=== PATIENT | male | born 1990 | race American Indian/Alaskan Native ===

== ENCOUNTER 2020-11-16 09:33 | Emergency (ER) | payer BC ==
--- NOTE | 2020-11-16 10:29 | XRay Report ---
CHEST 2 VIEWS INDICATION / CLINICAL INFORMATION: chest pain. COMPARISON: None available. FINDINGS: SUPPORT DEVICES: None. HEART / MEDIASTINUM: No significant abnormality. LUNGS / PLEURA: No significant pulmonary or pleural abnormality. No pneumothorax. ADDITIONAL FINDINGS: No significant additional findings. IMPRESSION: 1. No acute findings. Signer Name: Jagjit Kramer DO Signed: 11/16/2020 10:24 AM Workstation Name: [id number]
[2020-11-16 10:59] LABS: Basophils % (Auto) 0.4 % (0.0-1.8); Hemoglobin 13.7 gm/dl (11.8-15.2); Lymphocytes # (Auto) 1.1 K/mm3 (1.2-5.4); Lymphocytes % (Auto) 25.4 % (13.4-35.0); Mean Corpuscular HGB Conc 33 % (32-34); Mean Corpuscular Volume 76 fl (84-94); Monocytes # (Auto) 0.5 K/mm3 (0.0-0.8); Monocytes % (Auto) 11.5 % (0.0-7.3); Platelet Count 119 K/mm3 (140-440); Red Blood Count 5.56 M/mm3 (3.65-5.03); Red Cell Distribution Width 13.9 % (13.2-15.2)
[2020-11-16 11:26] LABS: Alanine Aminotransferase 39 units/L (7-56); Albumin 4.2 g/dL (3.9-5); BUN/Creatinine Ratio 9; Blood Urea Nitrogen 13 mg/dL (9-20); Calcium 8.6 mg/dL (8.4-10.2); Hemolysis Index 7
[2020-11-16 11:53] LABS: Bilirubin,Urine NEG (Negative); Blood,Urine NEG (Negative); Color,Urine Amber (Yellow); Mucus,Urine 2+ /HPF; Urobilinogen,Urine < 2.0 mg/dL (<2.0)
[2020-11-16] MEDS ORDERED: ONDANSETRON 4 MG ODT TAB PO ONE (11:55)
--- NOTE | 2020-11-16 11:55 | Emergency Department Report ---
ED General Adult HPI - General Chief complaint: Pain General Stated complaint: CHEST PAIN, BREATHING, HEADACHE, DIARRHEA Time Seen by Provider: 11/16/20 10:02 Source: patient Mode of arrival: Ambulatory Limitations: No Limitations - History of Present Illness Initial comments: 29-year-old -[place] male patient presents with complaints of chest p ain, cough, abdominal pain, vomiting, and diarrhea x4 days. Patient denies any recent known sick contacts, loss of taste or smell, hematemesis/coffee-ground emesis, melena/hematochezia, or fever. He does report minimal blood streaks in his sputum. No shortness of breath per patient. He describes the pain as a tightness and denies any past medical history. Pain occurs more with coughing. -: Sudden Severity scale (0 -10): 6 - Related Data Previous Rx's Medication Instructions Recorded Last Taken Type Acetaminophen [Tylenol] 975 mg PO TID PRN #30 capsule 11/16/20 Unknown Rx Ondansetron [Zofran Odt] 4 mg PO Q8HR PRN #15 tab.rapdis 11/16/20 Unknown Rx Allergies Allergy/AdvReac Type Severity Reaction Status Date / Time No Known Allergies Allergy Unverified 11/16/20 09:46 ED Review of Systems ROS: Stated complaint: CHEST PAIN, BREATHING, HEADACHE, DIARRHEA Other details as noted in HPI Constitutional: malaise, weakness. denies: chills, diaphoresis, fever ENT: denies: throat pain Respiratory: cough. denies: shortness of breath Cardiovascular: chest pain Gastrointestinal: abdominal pain, nausea, vomiting, diarrhea. denies: constipation, hematemesis, melena, hematochezia Genitourinary: denies: urgency, dysuria, frequency, hematuria Skin: denies: rash, lesions, change in color Neurological: headache (Mild intermittent.) ED Past Medical Hx - Past Medical History Previous Medical History?: No - Surgical History Past Surgical History?: No - Social History Smoking Status: Never Smoker Substance Use Type: None - Medications Home Medications: Home Medications Medication Instructions Recorded Confirmed Last Taken Type Acetaminophen [Tylenol] 975 mg PO TID PRN #30 capsule 11/16/20 Unknown Rx Ondansetron [Zofran Odt] 4 mg PO Q8HR PRN #15 tab.rapdis 11/16/20 Unknown Rx ED Physical Exam - General Limitations: No Limitations General appearance: alert, in no apparent distress - Head Head exam: Present: atraumatic, normocephalic - Eye Eye exam: Present: normal appearance. Absent: scleral icterus - Neck Neck exam: Present: normal inspection, full ROM. Absent: lymphadenopathy - Respiratory Respiratory exam: Present: normal lung sounds bilaterally. Absent: respiratory distress - Cardiovascular Cardiovascular Exam: Present: regular rate, normal rhythm - GI/Abdominal GI/Abdominal exam: Present: soft, normal bowel sounds. Absent: distended, te nderness, guarding, rebound, rigid - Neurological Exam Neurological exam: Present: alert, oriented X3, normal gait - Psychiatric Psychiatric exam: Present: normal affect, normal mood - Skin Skin exam: Present: warm, dry, intact, normal color. Absent: rash, cyanosis, diaphoretic, erythema, pallor, ecchymosis ED Course Vital Signs 11/16/20 09:47 Temperature 99.6 F Pulse Rate 89 Respiratory 20 Rate Blood Pressure 140/77 O2 Sat by Pulse 96 Oximetry ED Medical Decision Making - Lab Data Result diagrams: 11/16/20 10:31 11/16/20 10:31 Lab Results 11/16/20 11/16/20 Range/Units 10:31 10:31 WBC 4.5 (4.5-11.0) K/mm3 RBC 5.56 H (3.65-5.03) M/mm3 Hgb 13.7 (11.8-15.2) gm/dl Hct 42.0 (35.5-45.6) % MCV 76 L (84-94) fl MCH 25 L (28-32) pg MCHC 33 (32-34) % RDW 13.9 (13.2-15.2) % Plt Count 119 L (140-440) K/mm3 Lymph % (Auto) 25.4 (13.4-35.0) % [place] % (Auto) 11.5 H (0.0-7.3) % Eos % (Auto) 0.0 (0.0-4.3) % Baso % (Auto) 0.4 (0.0-1.8) % Lymph # (Auto) 1.1 L (1.2-5.4) K/mm3 [place] # (Auto) 0.5 (0.0-0.8) K/mm3 Eos # (Auto) 0.0 (0.0-0.4) K/mm3 Baso # (Auto) 0.0 (0.0-0.1) K/mm3 Seg Neutrophils % 62.7 (40.0-70.0) % Seg Neutrophils # 2.8 (1.8-7.7) K/mm3 Sodium 135 L (137-145) mmol/L Potassium 4.0 (3.6-5.0) mmol/L Chloride 97.0 L (98-107) mmol/L Carbon Dioxide 30 (22-30) mmol/L Anion Gap 12 mmol/L BUN 13 (9-20) mg/dL Creatinine 1.5 H (0.8-1.3) mg/dL Estimated GFR 55 ml/min BUN/Creatinine Ratio 9 % Glucose 91 (75-100) mg/dL Calcium 8.6 (8.4-10.2) mg/dL Total Bilirubin 0.60 (0.1-1.2) mg/dL AST 44 H (5-40) units/L ALT 39 (7-56) units/L Alkaline Phosphatase 52 (35-129) units/L Troponin T < 0.010 (0.00-0.029) ng/mL Total Protein 7.4 (6.3-8.2) g/dL Albumin 4.2 (3.9-5) g/dL Albumin/Globulin Ratio 1.3 % - Radiology Data Radiology results: report reviewed CHEST 2 VIEWS INDICATION / CLINICAL INFORMATION: chest pain. COMPARISON: None available. FINDINGS: SUPPORT DEVICES: None. HEART / MEDIASTINUM: No significant abnormality. LUNGS / PLEURA: No significant pulmonary or pleural abnormality. No pneumothorax. ADDITIONAL FINDINGS: No significant additional findings. IMPRESSION: 1. No acute findings. - Medical Decision Making 29-year-old -[place] male patient presents with complaints of chest pain, cough, abdominal pain, vomiting, and diarrhea x4 days. Patient denies any recent known sick contacts, loss of taste or smell, hematemesis/coffee-ground emesis, melena/hematochezia, or fever. He does report minimal blood streaks in his sputum. No shortness of breath per patient. He describes the pain as a tightness and denies any past medical history. Pain occurs more with coughing. No significant abnormalities on CBC or CMP. Chest x-ray and EKG are normal. Suspect viral illness or COVID-19. Will treat symptomatically. Patient advised to get COVID-19 testing outpatient within the next 24 to 48 hours and self quarantine until his test results are back. Vitals are normal he is nontoxic- appearing. He is stable for discharge home. He is to follow-up with primary care. Strict return precautions discussed in detail patient verbalized unde rstanding Critical care attestation.: If time is entered above; I have spent that time in minutes in the direct care of this critically ill patient, excluding procedure time. ED Disposition Clinical Impression: Suspected COVID-19 virus infection Disposition: TO HOME OR SELFCARE Is pt being admited?: No Condition: Stable Instructions: Prevent the Spread of COVID-19 if You Are Sick - CDC, COVID-19 Additional Instructions: Please take [id number] vitamin C and zinc daily and drink plenty of water. Please self quarantine until you are tested for COVID-19 If you develop any shortness of breath difficulty breathing or chest pain or any new/worsening symptoms seek immediate emergency treatment Prescriptions: Acetaminophen [Tylenol] 975 mg PO TID PRN #30 capsule PRN Reason: pain/fever Ondansetron [Zofran Odt] 4 mg PO Q8HR PRN #15 tab.rapdis PRN Reason: Nausea Referrals: [facility] [Provider Group] - 3-5 Days
[2020-11-16 12:43] VITALS: BP 140/88
--- NOTE | 2020-11-17 09:41 | Electrocardiograph Report ---
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
== END 2020-11-16 12:43 | disposition home or self-care (01) ==
LOC: ED 09:33
DX: R07.89 Other chest pain (principal); Z20.822 Contact with and (suspected) exposure to COVID-19; R05 Cough; R19.7 Diarrhea, unspecified; Z79.899 Other long term (current) drug therapy
CPT/HCPCS: 36415; 71046; 80053; 81001; 84484; 85025; 93005; Q0162

== ENCOUNTER 2020-11-19 11:19 | Inpatient (IN) | payer BC ==
[2020-11-19] MEDS ORDERED: cefTRIAXone/NS 1 GM/50 ML 1 GM/50 ML BAG IV ONE (12:17)
[2020-11-19] MEDS ORDERED: dexAMETHasone 20 MG/5 ML VIAL IV ONE (12:17)
[2020-11-19] MEDS ORDERED: AZITHROMYCIN/NS 500 MG/250 ML 500 MG/250 ML BAG IV ONE (12:17)
--- NOTE | 2020-11-19 12:24 | XRay Report ---
CHEST 2 VIEWS INDICATION / CLINICAL INFORMATION: COVID positive w/sob and hypoxic. COMPARISON: 11/16/20. FINDINGS: SUPPORT DEVICES: None. HEART / MEDIASTINUM: The heart size and pulmonary vasculature are normal. LUNGS / PLEURA: There are mild patchy parenchymal opacities throughout both mid to lower lung zones. No pleural effusion or adenopathy. No pneumothorax. ADDITIONAL FINDINGS: No significant additional findings. IMPRESSION: Mild patchy parenchymal opacities throughout both mid to lower lung zones are new since t he prior study. Atypical causes of pneumonia, including viral pneumonia, should be considered. Signer Name: Joby Barraza MD Signed: 11/19/2020 12:19 PM Workstation Name: [id number]
[2020-11-19] MEDS ORDERED: fentaNYL 100 MCG/2 ML INJ IV ONE (12:33)
[2020-11-19] MEDS ORDERED: METOCLOPRAMIDE 10 MG/2 ML INJ IV ONE (12:33)
--- NOTE | 2020-11-19 12:37 | Emergency Department Report ---
HPI - General Chief Complaint: Dyspnea/Respdistress Time Seen by Provider: 11/19/20 12:16 - HPI HPI: Room 1 The patient is a 30-year-old male present with a chief complaint of shortness of breath and cough. The patient states for 1 week he has had a cough productive of clear sputum in addition to shortness of breath and fever. Patient complained of chest pain when he coughs. The patient went to urgent care facility today and tested positive for Covid. Patient was reportedly hypoxic to 87% on room air in triage. Patient states he did not receive any Covid vaccinations ED Past Medical Hx - Past Medical History Previous Medical History?: No - Surgical History Past Surgical History?: No - Family History Family history: no significant - Social History Smoking Status: Never Smoker Substance Use Type: None - Medications Home Medications: Home Medications Medication Instructions Recorded Confirmed Last Taken Type Acetaminophen [Tylenol] 975 mg PO TID PRN #30 capsule 11/16/20 Unknown Rx Ondansetron [Zofran Odt] 4 mg PO Q8HR PRN #15 tab.rapdis 11/16/20 Unknown Rx ED Review of Systems ROS: Stated complaint: TROUBLE BREATHING Other details as noted in HPI Constitutional: fever Eyes: denies: eye pain ENT: denies: throat pain Respiratory: cough, shortness of breath Cardiovascular: chest pain Endocrine: no symptoms reported Gastrointestinal: denies: abdominal pain Genitourinary: denies: dysuria Musculoskeletal: myalgia Neurological: headache Physical Exam - Physical Exam Vital Signs: Vital Signs 11/19/20 11:28 Temperature 99.6 F Pulse Rate 104 H Respiratory 20 Rate Blood Pressure 124/64 O2 Sat by Pulse 100 Oximetry Physical Exam: GENERAL: The patient is well-developed well-nourished male lying on stretcher not appearing to be in acute distress. [] HEENT: Normocephalic. Atraumatic. Extraocular motions are intact. Patient has moist mucous membranes. NECK: Supple. Trachea midline CHEST/LUNGS: Occasional rhonchi. There is no respiratory distress noted. HEART/CARDIOVASCULAR: Regular. There is no tachycardia. There is no gallop rub or murmur. ABDOMEN: Abdomen is soft, nontender. Patient has normal bowel sounds. There is no abdominal distention. SKIN: There is no rash. There is no edema. There is no diaphoresis. NEURO: The patient is awake, alert, and oriented. The patient is cooperative. The patient has no focal neurologic deficits. The patient has normal speech MUSCULOSKELETAL: There is no evidence of acute injury. ED Course Vital Signs 11/19/20 11:28 Temperature 99.6 F Pulse Rate 104 H Respiratory 20 Rate Blood Pressure 124/64 O2 Sat by Pulse 100 Oximetry ED Medical Decision Making - Lab Data Result diagrams: 11/19/20 12:15 11/19/20 12:15 Laboratory Tests 11/19/20 11/19/20 11/19/20 12:15 12:15 12:15 WBC 6.4 RBC 5.53 H Hgb 13.6 Hct 41.7 MCV 76 L MCH 25 L MCHC 33 RDW 14.3 Plt Count 83 L Lymph % (Auto) 15.9 [place] % (Auto) 7.9 H Eos % (Auto) 0.0 Baso % (Auto) 0.3 Lymph # (Auto) 1.0 L [place] # (Auto) 0.5 Eos # (Auto) 0.0 Baso # (Auto) 0.0 Seg Neutrophils % 75.9 H Seg Neutrophils # 4.8 D-Dimer 1284.11 H Sodium 130 L Potassium 4.4 Chloride 89.4 L Carbon Dioxide 32 H Anion Gap 13 BUN 14 Creatinine 1.5 H Estimated GFR > 60 BUN/Creatinine Ratio 9 Glucose 109 H Calcium 8.8 Total Bilirubin 0.90 AST 95 H ALT 72 H Alkaline Phosphatase 57 Lactate Dehydrogenase 999 H Troponin T C-Reactive Protein 3.40 H Total Protein 7.7 Albumin 4.1 Albumin/Globulin Ratio 1.1 11/19/20 12:15 WBC RBC Hgb Hct MCV MCH MCHC RDW Plt Count Lymph % (Auto) [place] % (Auto) Eos % (Auto) Baso % (Auto) Lymph # (Auto) [place] # (Auto) Eos # (Auto) Baso # (Auto) Seg Neutrophils % Seg Neutrophils # D-Dimer Sodium Potassium Chloride Carbon Dioxide Anion Gap BUN Creatinine Estimated GFR BUN/Creatinine Ratio Glucose Calcium Total Bilirubin AST ALT Alkaline Phosphatase Lactate Dehydrogenase Troponin T < 0.010 C-Reactive Protein Total Protein Albumin Albumin/Globulin Ratio - Radiology Data Radiology results: report reviewed (Chest x-ray), image reviewed (Chest x-ray) interpreted by me: Chest [id number]-chqkhw bilateral infiltrates consistent with Covid pneumonia. No pneumothorax [facility] [address] [place] [address] XRay Report Signed Patient: DG RUSSELL MR#: [id number] : 1990 Acct:[id number] Age/Sex: 30 / M ADM Date: 11/19/20 Loc: ED Attending Dr: Ordering Physician: HERSON CONLEY Date of Service: 11/19/20 Procedure(s): XR chest routine 2V Accession Number(s): [id number] cc: HERSON CONLEY Fluoro Time In Minutes: CHEST 2 VIEWS INDICATION / CLINICAL INFORMATION: COVID positive w/sob and hypoxic. COMPARISON: 11/16/20. FINDINGS: SUPPORT DEVICES: None. HEART / MEDIASTINUM: The heart size and pulmonary vasculature are normal. LUNGS / PLEURA: There are mild patchy parenchymal opacities throughout both mid to lower lung zones. No pleural effusion or adenopathy. No pneumothorax. ADDITIONAL FINDINGS: No significant additional findings. IMPRESSION: Mild patchy parenchymal opacities throughout both mid to lower lung zones are new since the prior study. Atypical causes of pneumonia, including viral pneumonia, should be considered. Signer Name: Joby Barraza MD Signed: 11/19/2020 12:19 PM Workstation Name: [id number] Transcribed By: RT Dictated By: Joby Barraza MD Electronically Authenticated By: Joby Barraza MD Signed Date/Time: 11/19/20 121 DD/ TD/TT: Print Cancel - Differential Diagnosis COVID-19 Critical care attestation.: If time is entered above; I have spent that time in minutes in the direct care of this critically ill patient, excluding procedure time. ED Disposition Clinical Impression: Pneumonia due to COVID-19 virus, Hypoxia Disposition: OP ADMIT IP TO THIS HOSP Is pt being admited?: Yes Does the pt Need Aspirin: No Condition: Serious Instructions: Bacterial Pneumonia (ED) Time of Disposition: 13:52 (Hospitalist notified (Dr. Lawson))
[2020-11-19 12:52] LABS: Alanine Aminotransferase 72 units/L (7-56); Albumin 4.1 g/dL (3.9-5); BUN/Creatinine Ratio 9; Blood Urea Nitrogen 14 mg/dL (9-20); Calcium 8.8 mg/dL (8.4-10.2); Hemolysis Index 30
[2020-11-19 13:35] LABS: Basophils % (Auto) 0.3 % (0.0-1.8); Hematocrit 41.7 % (35.5-45.6); Hemoglobin 13.6 gm/dl (11.8-15.2); Lymphocytes % (Auto) 15.9 % (13.4-35.0); Mean Corpuscular HGB Conc 33 % (32-34); Mean Corpuscular Volume 76 fl (84-94); Monocytes # (Auto) 0.5 K/mm3 (0.0-0.8); Monocytes % (Auto) 7.9 % (0.0-7.3); Red Blood Count 5.53 M/mm3 (3.65-5.03); Red Cell Distribution Width 14.3 % (13.2-15.2)
[2020-11-19 13:41] LABS: Platelet Count 83 K/mm3 (140-440)
--- NOTE | 2020-11-19 18:32 | Electrocardiograph Report ---
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
--- NOTE | 2020-11-19 22:48 | History and Physical Report ---
History of Present Illness Date of examination: 11/19/20 Date of admission: 11/19/20 13:53 Chief complaint: Shortness of breath for 1 week History of present illness: 30-year-old -[place] male with no significant past medical history comes in for cough and shortness of breath of 1 week. Shortness of breath is worsened today. In the triage patient was saturating around 87% on room air. Patient did not believe in Covid vaccine and did not take the Covid vaccine. Patient went to urgent care clinic this morning and was sent here because of the low oxygen saturations and fever. And the shortness of breath. Patient now regrets not taking the Covid vaccine. In the urgent care clinic rapid Covid test was positive. Patient has generalized weakness, low-grade fever and muscle aches and shortness of breath. Shortness of breath exacerbated with exertion and relieved with rest. - Past Medical History none - Surgical History Past Surgical History?: No - Family History Family history: no significant - Social History Smoking Status: Never Smoker Substance Use Type: None - Medications Home Medications: Home Medications Medication Instructions Recorded Confirmed Last Taken Type Acetaminophen [Tylenol] 975 mg PO TID PRN #30 capsule 11/16/20 Unknown Rx Ondansetron [Zofran Odt] 4 mg PO Q8HR PRN #15 tab.rapdis 11/16/20 Unknown Rx --Review of Systems ROS: Stated complaint: TROUBLE BREATHING Other details as noted in HPI Constitutional: fever Eyes: denies: eye pain ENT: denies: throat pain Respiratory: cough, shortness of breath Cardiovascular: chest pain Endocrine: no symptoms reported Gastrointestinal: denies: abdominal pain Genitourinary: denies: dysuria Musculoskeletal: myalgia Neurological: headache Medications and Allergies Allergies Allergy/AdvReac Type Severity Reaction Status Date / Time No Known Allergies Allergy Verified 11/19/20 23:21 Home Medications Medication Instructions Recorded Confirmed Last Taken Type Acetaminophen [Tylenol] 975 mg PO TID PRN #30 capsule 11/16/20 Unknown Rx Ondansetron [Zofran Odt] 4 mg PO Q8HR PRN #15 tab.rapdis 11/16/20 Unknown Rx Exam - Physical Exam Narrative exam: On 10 L nasal cannula oxygen - Constitutional Vitals: Temp Pulse Resp BP Pulse Ox 99.0 F 85 24 110/67 99 11/19/20 21:38 07/16/21 21:38 11/19/20 21:38 11/19/20 21:38 11/19/20 21:38 General appearance: Present: no acute distress, mild distress, well-nourished - EENT Eyes: Present: PERRL ENT: hearing intact, clear oral mucosa - Neck Neck: Present: supple, normal ROM - Respiratory Respiratory effort: normal Respiratory: bilateral: CTA - Cardiovascular Heart rate: 110 Rhythm: regular Heart Sounds: Present: S1 & S2. Absent: rub, click - Extremities Extremities: no ischemia, pulses intact, pulses symmetrical, No edema Peripheral Pulses: within normal limits - Abdominal General gastrointestinal: Present: soft, non-tender, non-distended, normal bowel sounds Male genitourinary: Present: normal - Rectal Rectal Exam: deferred - Integumentary Integumentary: Present: clear, warm, dry - Musculoskeletal Musculoskeletal: gait normal, strength equal bilaterally - Psychiatric Psychiatric: appropriate mood/affect, intact judgment & insight - Neurologic Neurologic: CNII-XII intact, moves all extremities - Allied Health Allied health notes reviewed: nursing, case management HEART Score - HEART Score Troponin: Troponin T < 0.010 ng/mL (0.00-0.029) 11/19/20 12:15 Results - Labs CBC & Chem 7: 11/19/20 12:15 11/19/20 12:15 Labs: Laboratory Last Values WBC 6.4 K/mm3 (4.5-11.0) 11/19/20 12:15 RBC 5.53 M/mm3 (3.65-5.03) H 11/19/20 12:15 Hgb 13.6 gm/dl (11.8-15.2) 11/19/20 12:15 Hct 41.7 % (35.5-45.6) 11/19/20 12:15 MCV 76 fl (84-94) L 11/19/20 12:15 MCH 25 pg (28-32) L 11/19/20 12:15 MCHC 33 % (32-34) 11/19/20 12:15 RDW 14.3 % (13.2-15.2) 11/19/20 12:15 Plt Count 83 K/mm3 (140-440) L 11/19/20 12:15 Lymph % (Auto) 15.9 % (13.4-35.0) 11/19/20 12:15 [place] % (Auto) 7.9 % (0.0-7.3) H 11/19/20 12:15 Eos % (Auto) 0.0 % (0.0-4.3) 11/19/20 12:15 Baso % (Auto) 0.3 % (0.0-1.8) 11/19/20 12:15 Lymph # (Auto) 1.0 K/mm3 (1.2-5.4) L 11/19/20 12:15 [place] # (Auto) 0.5 K/mm3 (0.0-0.8) 11/19/20 12:15 Eos # (Auto) 0.0 K/mm3 (0.0-0.4) 11/19/20 12:15 Baso # (Auto) 0.0 K/mm3 (0.0-0.1) 11/19/20 12:15 Seg Neutrophils % 75.9 % (40.0-70.0) H 11/19/20 12:15 Seg Neutrophils # 4.8 K/mm3 (1.8-7.7) 11/19/20 12:15 D-Dimer 1284.11 ng/mlDDU (0-234) H 11/19/20 12:15 Sodium 130 mmol/L (137-145) L 11/19/20 12:15 Potassium 4.4 mmol/L (3.6-5.0) 11/19/20 12:15 Chloride 89.4 mmol/L (98-107) L 11/19/20 12:15 Carbon Dioxide 32 mmol/L (22-30) H 11/19/20 12:15 Anion Gap 13 mmol/L 11/19/20 12:15 BUN 14 mg/dL (9-20) 11/19/20 12:15 Creatinine 1.5 mg/dL (0.8-1.3) H 11/19/20 12:15 Estimated GFR > 60 ml/min 11/19/20 12:15 BUN/Creatinine Ratio 9 % 11/19/20 12:15 Glucose 109 mg/dL (75-100) H 11/19/20 12:15 Calcium 8.8 mg/dL (8.4-10.2) 11/19/20 12:15 Ferritin 4190.0 ng/mL (30.0-300.0) H 11/19/20 12:15 Total Bilirubin 0.90 mg/dL (0.1-1.2) 11/19/20 12:15 AST 95 units/L (5-40) H 11/19/20 12:15 ALT 72 units/L (7-56) H 11/19/20 12:15 Alkaline Phosphatase 57 units/L (35-129) 11/19/20 12:15 Lactate Dehydrogenase 999 units/L (91-180) H 11/19/20 12:15 Troponin T < 0.010 ng/mL (0.00-0.029) 11/19/20 12:15 C-Reactive Protein 3.40 mg/dL (0.00-1.30) H 11/19/20 12:15 Total Protein 7.7 g/dL (6.3-8.2) 11/19/20 12:15 Albumin 4.1 g/dL (3.9-5) 11/19/20 12:15 Albumin/Globulin Ratio 1.1 % 11/19/20 12:15 Procalcitonin 0.14 ng/mL (<0.15) 11/19/20 12:15 Short CBC 11/19/20 Range/Units 12:15 WBC 6.4 (4.5-11.0) K/mm3 Hgb 13.6 (11.8-15.2) gm/dl Hct 41.7 (35.5-45.6) % Plt Count 83 L (140-440) K/mm3 BMP 11/19/20 12:15 Sodium 130 L Potassium 4.4 Chloride 89.4 L Carbon Dioxide 32 H BUN 14 Creatinine 1.5 H Glucose 109 H Calcium 8.8 Cardiac Enzymes 11/19/20 Range/Units 12:15 Troponin T < 0.010 (0.00-0.029) ng/mL Liver Function 11/19/20 Range/Units 12:15 Total Bilirubin 0.90 (0.1-1.2) mg/dL AST 95 H (5-40) units/L ALT 72 H (7-56) units/L Alkaline Phosphatase 57 (35-129) units/L Albumin 4.1 (3.9-5) g/dL Microbiology: Microbiology 11/19/20 14:30 Peripheral/Venous Blood Culture - Preliminary Culture in Progress 11/19/20 14:21 Peripheral/Venous Blood Culture - Preliminary Culture in Progress - Imaging and Cardiology Chest x-ray: report reviewed Imaging and Cardiology: chest x-ray Mild patchy parenchymal opacities throughout both mid to lower lung zones are new since the prior study. Atypical causes of pneumonia including viral pneumonia should be considered Assessment and Plan Advance Directives: Yes (Full code) VTE prophylaxis?: Chemical Plan of care discussed with patient/family: Yes - Patient Problems (1) Acute respiratory failure with hypoxia Current Visit: Yes Status: Acute Plan to address problem: Continue nasal cannula oxygen at 10 L and adjust oxygen levels depending on saturations. High flow nasal cannula oxygen if necessary. Patient tested positive for Covid in urgent care clinic but will repeat the Covid virus test in the hospital IV dexamethasone given-8 mg every 24 hours ID consult requested (2) SIRS (systemic inflammatory response syndrome) Current Visit: Yes Status: Acute Plan to address problem: All inflammatory markers are high including CRP of 3.40 and high ferritin level of 4190 and LDH of 999 Patient is also tachycardic and tachypneic (3) Bilateral pneumonia Current Visit: Yes Status: Acute Plan to address problem: Bilateral pulmonary pneumonia Patient started on IV Zithromax and IV ceftriaxone We will discontinue depending on the repeat procalcitonin levels (4) MICHELE (acute kidney injury) Current Visit: Yes Status: Acute Plan to address problem: 1 L of normal saline. To be stopped after 12 hours Vasomotor nephropathy and Covid infection (5) Person under investigation for COVID-19 Current Visit: Yes Status: Acute Plan to address problem: Patient already tested positive in the urgent care clinic. We will repeat the coronavirus PCR test on 11/20/2020 in the hospital ID consult requested for possible remdesivir and consultation about the Covid infection (6) Thrombocytopenia Current Visit: Yes Status: Acute Plan to address problem: Probably secondary to Covid Lovenox was stopped Only SCDs (7) Hyponatremia Current Visit: Yes Status: Acute Plan to address problem: IV normal saline of 1 L and to be discontinued Trend the sodium levels (8) Transaminitis Current Visit: Yes Status: Acute Plan to address problem: Probably secondary to saavedra virus infection Check hepatitis panel (9) DVT prophylaxis Current Visit: Yes Status: Acute Plan to address problem: Patient on Lovenox but was discontinued because of the low platelet count of 83,000
[2020-11-19] MEDS ORDERED: HYDROmorphone 1 MG/1 ML INJ IV PRN (23:05)
[2020-11-19] MEDS ORDERED: METOCLOPRAMIDE 10 MG/2 ML INJ IV PRN (23:05)
[2020-11-19] MEDS ORDERED: oxyCODONE /ACETAMINOPHEN 5-325MG TAB PO PRN (23:05)
[2020-11-19] MEDS ORDERED: ONDANSETRON 4 MG/2 ML INJ IV PRN (23:05)
[2020-11-19] MEDS ORDERED: ACETAMINOPHEN 325 MG TAB PO PRN (23:05)
[2020-11-20] MEDS ORDERED: SODIUM CHLORIDE 0.9% 1000 ML 1,000 ML IV SCH (06:30)
[2020-11-20 08:55] LABS: Alanine Aminotransferase 68 units/L (7-56); Albumin 3.9 g/dL (3.9-5); BUN/Creatinine Ratio 17; Blood Urea Nitrogen 19 mg/dL (9-20); Calcium 8.6 mg/dL (8.4-10.2); Hemolysis Index 19
[2020-11-20 09:22] LABS: Basophils % (Auto) 0.1 % (0.0-1.8); Hematocrit 39.6 % (35.5-45.6); Hemoglobin 12.7 gm/dl (11.8-15.2); Lymphocytes # (Auto) 0.8 K/mm3 (1.2-5.4); Mean Corpuscular HGB Conc 32 % (32-34); Mean Corpuscular Volume 76 fl (84-94); Monocytes # (Auto) 0.7 K/mm3 (0.0-0.8); Monocytes % (Auto) 9.1 % (0.0-7.3); Red Blood Count 5.22 M/mm3 (3.65-5.03); Red Cell Distribution Width 14.2 % (13.2-15.2)
[2020-11-20] MEDS ORDERED: ENOXAPARIN 40 MG/0.4 ML INJ SUB-Q SCH (10:00)
[2020-11-20] MEDS ORDERED: cefTRIAXone/NS 2 GM/100 ML 2 GM/100 ML BAG IV SCH (10:00)
[2020-11-20] MEDS ORDERED: AZITHROMYCIN/NS 500 MG/250 ML 500 MG/250 ML BAG IV SCH (10:00)
[2020-11-20 10:09] LABS: Platelet Count 96 K/mm3 (140-440)
[2020-11-20] MEDS: dexAMETHasone 4 MG/ML VIAL IV SCH (11:39)
[2020-11-20] MEDS: FAMOTIDINE 20 MG TAB PO SCH ×2 (11:39→21:32)
--- NOTE | 2020-11-20 13:10 | Consultation ---
History of Present Illness - Reason for Consult Consult date: 11/20/20 - History of Present Illness 30-year-old man no past medical history presented to hospital with cough and shortness of breath. This began approximate 1 week prior to admission, became presently worse. He was found to be hypoxic on presentation. He refused Covid vaccine as an outpatient. Covid testing is positive an outpatient. Afebrile since admission with a white count of 7.6. Normal procalcitonin, normal renal function. Elevated inflammatory markers. Blood cultures no growth so far. Currently ceftriaxone azithromycin as well as dexamethasone. Requiring high flow nasal cannula. Imaging personally reviewed: Chest x-ray: Bilateral pneumonia Review of systems: Deferred to reduce to the risk of transmission of COVID-19 Medications and Allergies Allergies Allergy/AdvReac Type Severity Reaction Status Date / Time No Known Allergies Allergy Verified 11/19/20 23:21 Home Medications Medication Instructions Recorded Confirmed Last Taken Type Acetaminophen [Tylenol] 975 mg PO TID PRN #30 capsule 11/16/20 Unknown Rx Ondansetron [Zofran Odt] 4 mg PO Q8HR PRN #15 tab.rapdis 11/16/20 Unknown Rx Active Meds: Active Medications Acetaminophen (Acetaminophen 325 Mg Tab) 650 mg PO Q4H PRN PRN Reason: Pain MILD(1-3)/Fever >100.5/GLEZ Dexamethasone (Dexamethasone 4 Mg/Ml Vial) 8 mg IV Q24H AIDEN Stop: 11/28/20 10:01 Last Admin: 11/20/20 11:39 Dose: 8 mg Documented by: Famotidine (Famotidine 20 Mg Tab) 20 mg PO BID [facility] Last Admin: 11/20/20 11:39 Dose: 20 mg Documented by: Azithromycin (Zithromax/Ns) 500 mg in 250 mls @ 250 mls/hr IV Q24H AIDEN Stop: 11/23/20 10:59 Last Admin: 11/20/20 11:33 Dose: 250 mls/hr Documented by: Ceftriaxone Sodium (Rocephin/Ns 2 Gm/100 Ml) 2 gm in 100 mls @ 200 mls/hr IV Q24HR AIDEN; Protocol Stop: 11/23/20 12:59 Sodium Chloride (Nacl 0.9% 1000 Ml) 1,000 mls @ 75 mls/hr IV DIRECT AIDEN Stop: 11/20/20 16:00 Metoclopramide HCl (Metoclopramide 10 Mg/2 Ml Inj) 10 mg IV Q6H PRN PRN Reason: Nausea And Vomiting Ondansetron HCl (Ondansetron 4 Mg/2 Ml Inj) 4 mg IV Q8H PRN PRN Reason: Nausea And Vomiting Sodium Chloride (Sodium Chloride 0.9% 10 Ml Flush Syringe) 10 ml IV BID AIDEN Last Admin: 11/20/20 11:39 Dose: 10 ml Documented by: Sodium Chloride (Sodium Chloride 0.9% 10 Ml Flush Syringe) 10 ml IV PRN PRN PRN Reason: LINE FLUSH Physical Examination - Physical Exam Narrative exam: Physical exam deferred to reduce risk of transmission of COVID-19. Please refer to primary team's note. - Constitutional Vitals: Vital Signs Temp Pulse Resp BP Pulse Ox 98.2 F 95 H 18 119/71 96 11/20/20 11:51 11/20/20 11:51 11/20/20 11:51 11/20/20 11:51 11/20/20 11:51 Temperature -Last 24 Hours Temperature 98.2 F Temperature 98.9 F Temperature 98.0 F Temperature 99.0 F Results - Labs CBC & Chem 7: 11/20/20 07:30 11/20/20 07:17 Labs: Abnormal lab results 11/19/20 11/19/20 11/20/20 Range/Units 12:15 12:15 07:17 RBC 5.53 H (3.65-5.03) M/mm3 MCV 76 L (84-94) fl MCH 25 L (28-32) pg Plt Count 83 L (140-440) K/mm3 Lymph % (Auto) (13.4-35.0) % [place] % (Auto) 7.9 H (0.0-7.3) % Lymph # (Auto) 1.0 L (1.2-5.4) K/mm3 Seg Neutrophils % 75.9 H (40.0-70.0) % Sodium 131 L (137-145) mmol/L Chloride 92.9 L (98-107) mmol/L Glucose 126 H (75-100) mg/dL Ferritin 4190.0 H (30.0-300.0) ng/mL AST 74 H (5-40) units/L ALT 68 H (7-56) units/L // Range/Units 07:30 RBC 5.22 H (3.65-5.03) M/mm3 MCV 76 L (84-94) fl MCH 24 L (28-32) pg Plt Count 96 L (140-440) K/mm3 Lymph % (Auto) 11.0 L (13.4-35.0) % [place] % (Auto) 9.1 H (0.0-7.3) % Lymph # (Auto) 0.8 L (1.2-5.4) K/mm3 Seg Neutrophils % 79.8 H (40.0-70.0) % Sodium (137-145) mmol/L Chloride (98-107) mmol/L Glucose (75-100) mg/dL Ferritin (30.0-300.0) ng/mL AST (5-40) units/L ALT (7-56) units/L Assessment and Plan Cultures: Blood culture no growth so far Covid PCR: Positive as outpatient, pending as inpatient. A/P: 28-year-old man with obesity presented to hospital with COVID-19 mono. #Severe COVID-19 pneumonia: Patient presented with a week of symptoms, chest x- ray with diffuse bilateral infiltrates, admission O2 sats 87%on room air. Inflammatory markers elevated #Acute hypoxemic respiratory failure: Likely secondary to COVID-19 infection. Currently on high flow nasal cannula. #Obesity Recs: -Dexamethasone 8 mg daily, okay with higher dosing due to obesity -Remdesivir 200 mg IV q day x 1 followed by 100 mg IV q day x 4 days -Obtain q48-72h inflammatory markers - ferritin, Ddimer, CRP, LDH -Stopped antibiotics due to normal procalcitonin -Anticoagulation per hospital protocol -Proning as able Thank you for the consult, we will continue to follow. Benny Valverde MD [facility] ([facility] O: [phone] F: [phone]
--- NOTE | 2020-11-20 15:07 | Progress Note ---
Assessment and Plan Assessment and plan: (1) Acute respiratory failure with hypoxia Current Visit: Yes Status: Acute Plan to address problem: Continue nasal cannula oxygen and titrate/escalate as needed. High flow nasal cannula oxygen if necessary. Patient tested positive for Covid in urgent care clinic but will repeat the Covid virus test in the hospital IV dexamethasone given-8 mg every 24 hours ID consulted: recommend decadron IV, Remdesivir IV, trend inflammatory markers. D/c abx. (2) SIRS (systemic inflammatory response syndrome) Current Visit: Yes Status: Acute Plan to address problem: All inflammatory markers are high including CRP of 3.40 and high ferritin level of 4190 and LDH of 999 Patient is also tachycardic and tachypneic (3) Bilateral pneumonia Current Visit: Yes Status: Acute Plan to address problem: Bilateral pulmonary pneumonia, viral covid pna. d/c antibiotics, started on decadron and remdesivir. (4) MICHELE (acute kidney injury) Current Visit: Yes Status: Acute Plan to address problem: 1 L of normal saline. To be stopped after 12 hours Vasomotor nephropathy and Covid infection (5) COVID 19 pneumonia patient did not receive vaccine. ID consulted therapies as above. (6) Thrombocytopenia Current Visit: Yes Status: Acute Plan to address problem: Probably secondary to Covid Lovenox was stopped Only SCDs Monitor on CBC. (7) Hyponatremia Current Visit: Yes Status: Acute Plan to address problem: IV normal saline of 1 L and to be discontinued Trend the sodium levels (8) Transaminitis Current Visit: Yes Status: Acute Plan to address problem: Probably secondary to saavedra virus infection hepatitis panel negative Trend transaminases. (9) DVT prophylaxis Current Visit: Yes Status: Acute Plan to address problem: Patient on Lovenox but was discontinued because of the low platelet count of 83,000 History Interval history: slightly labored breathing on encounter. O2 sat however was 99%, Per RN, patient had just gotten up to go to bathroom off of oxygen supplemntation. Patient had normalized breathing by the end of encounter. patient states that his chest hurts and he is still very short of breath. Patient was requiring 8L NC at the time of encounter. Hospitalist Physical - Constitutional Vitals: Temp Pulse Resp BP Pulse Ox 98.2 F 95 H 18 119/71 96 11/20/20 11:51 11/20/20 11:51 11/20/20 11:51 11/20/20 11:51 11/20/20 11:51 General appearance: Present: mild distress, well-nourished - EENT Eyes: Present: PERRL, EOM intact ENT: hearing intact, clear oral mucosa, dentition normal - Neck Neck: Present: supple, normal ROM - Respiratory Respiratory effort: labored Respiratory: bilateral: diminished - Cardiovascular Rhythm: regular - Extremities Extremities: no ischemia, No edema, normal temperature, normal color Peripheral Pulses: within normal limits - Abdominal General gastrointestinal: soft, non-tender, non-distended - Integumentary Integumentary: Present: clear, warm, dry - Psychiatric Psychiatric: appropriate mood/affect, memory intact, cooperative - Neurologic Neurologic: CNII-XII intact, moves all extremities, gait normal HEART Score - HEART Score Troponin: Troponin T < 0.010 ng/mL (0.00-0.029) 11/19/20 12:15 Results - Labs CBC & Chem 7: 11/20/20 07:30 11/20/20 07:17 Labs: Laboratory Last Values WBC 7.6 K/mm3 (4.5-11.0) 11/20/20 07:30 RBC 5.22 M/mm3 (3.65-5.03) H 11/20/20 07:30 Hgb 12.7 gm/dl (11.8-15.2) 11/20/20 07:30 Hct 39.6 % (35.5-45.6) 11/20/20 07:30 MCV 76 fl (84-94) L 11/20/20 07:30 MCH 24 pg (28-32) L 11/20/20 07:30 MCHC 32 % (32-34) 11/20/20 07:30 RDW 14.2 % (13.2-15.2) 11/20/20 07:30 Plt Count 96 K/mm3 (140-440) L 11/20/20 07:30 Lymph % (Auto) 11.0 % (13.4-35.0) L 11/20/20 07:30 [place] % (Auto) 9.1 % (0.0-7.3) H 11/20/20 07:30 Eos % (Auto) 0.0 % (0.0-4.3) 11/20/20 07:30 Baso % (Auto) 0.1 % (0.0-1.8) 11/20/20 07:30 Lymph # (Auto) 0.8 K/mm3 (1.2-5.4) L 11/20/20 07:30 [place] # (Auto) 0.7 K/mm3 (0.0-0.8) 11/20/20 07:30 Eos # (Auto) 0.0 K/mm3 (0.0-0.4) 11/20/20 07:30 Baso # (Auto) 0.0 K/mm3 (0.0-0.1) 11/20/20 07:30 Seg Neutrophils % 79.8 % (40.0-70.0) H 11/20/20 07:30 Seg Neutrophils # 6.1 K/mm3 (1.8-7.7) 11/20/20 07:30 D-Dimer 1284.11 ng/mlDDU (0-234) H 11/19/20 12:15 Sodium 131 mmol/L (137-145) L 11/20/20 07:17 Potassium 4.7 mmol/L (3.6-5.0) 11/20/20 07:17 Chloride 92.9 mmol/L (98-107) L 11/20/20 07:17 Carbon Dioxide 28 mmol/L (22-30) 11/20/20 07:17 Anion Gap 15 mmol/L 11/20/20 07:17 BUN 19 mg/dL (9-20) 11/20/20 07:17 Creatinine 1.1 mg/dL (0.8-1.3) 11/20/20 07:17 Estimated GFR > 60 ml/min 11/20/20 07:17 BUN/Creatinine Ratio 17 % 11/20/20 07:17 Glucose 126 mg/dL (75-100) H 11/20/20 07:17 Hemoglobin A1c 5.1 % (4-6) 11/20/20 07:30 Calcium 8.6 mg/dL (8.4-10.2) 11/20/20 07:17 Ferritin 4190.0 ng/mL (30.0-300.0) H 11/19/20 12:15 Total Bilirubin 0.70 mg/dL (0.1-1.2) 11/20/20 07:17 AST 74 units/L (5-40) H 11/20/20 07:17 ALT 68 units/L (7-56) H 11/20/20 07:17 Alkaline Phosphatase 51 units/L (35-129) 11/20/20 07:17 Lactate Dehydrogenase 999 units/L (91-180) H 11/19/20 12:15 Troponin T < 0.010 ng/mL (0.00-0.029) 11/19/20 12:15 C-Reactive Protein 3.40 mg/dL (0.00-1.30) H 11/19/20 12:15 Total Protein 7.1 g/dL (6.3-8.2) 11/20/20 07:17 Albumin 3.9 g/dL (3.9-5) 11/20/20 07:17 Albumin/Globulin Ratio 1.2 % 11/20/20 07:17 Procalcitonin 0.14 ng/mL (<0.15) 11/19/20 12:15 Microbiology: Microbiology 11/19/20 14:30 Peripheral/Venous Blood Culture - Preliminary Culture in Progress 11/19/20 14:21 Peripheral/Venous Blood Culture - Preliminary Culture in Progress Sebastian/IV: Voiding Method Toilet Active Medications - Current Medications Current Medications: Generic Name Dose Route Start Last Admin Trade Name Freq PRN Reason Stop Dose Admin Acetaminophen 650 mg 11/19/20 23:05 Acetaminophen 325 Mg Tab PO Q4H PRN Pain MILD(1-3)/Fever >100.5/GLEZ Dexamethasone 8 mg 11/20/20 10:00 11/20/20 11:39 Dexamethasone 4 Mg/Ml Vial IV 11/28/20 10:01 8 mg Q24H AIDEN Administration Famotidine 20 mg 11/20/20 10:00 11/20/20 11:39 Famotidine 20 Mg Tab PO 20 mg BID AIDEN Administration Sodium Chloride 1,000 mls @ 75 mls/hr 11/20/20 06:30 Nacl 0.9% 1000 Ml IV 11/20/20 16:00 DIRECT AIDEN Metoclopramide HCl 10 mg 11/19/20 23:05 Metoclopramide 10 Mg/2 Ml Inj IV Q6H PRN Nausea And Vomiting Ondansetron HCl 4 mg 11/19/20 23:05 Ondansetron 4 Mg/2 Ml Inj IV Q8H PRN Nausea And Vomiting Sodium Chloride 10 ml 11/20/20 10:00 11/20/20 11:39 Sodium Chloride 0.9% 10 Ml Flush Syringe IV 10 ml BID AIDEN Administration Sodium Chloride 10 ml 11/19/20 23:05 Sodium Chloride 0.9% 10 Ml Flush Syringe IV PRN PRN LINE FLUSH
[2020-11-20 15:11] LABS: Hepatitis B Surface Antigen Non-Reactive (Negative); Hepatitis C Virus Antibody Non-Reactive (NonReactive)
[2020-11-21 07:55] LABS: Basophils % (Auto) 0.1 % (0.0-1.8); Hematocrit 38.7 % (35.5-45.6); Hemoglobin 12.5 gm/dl (11.8-15.2); Lymphocytes # (Auto) 0.9 K/mm3 (1.2-5.4); Lymphocytes % (Auto) 10.2 % (13.4-35.0); Mean Corpuscular HGB Conc 32 % (32-34); Mean Corpuscular Volume 77 fl (84-94); Monocytes # (Auto) 0.8 K/mm3 (0.0-0.8); Monocytes % (Auto) 8.6 % (0.0-7.3); Platelet Count 131 K/mm3 (140-440); Red Blood Count 5.05 M/mm3 (3.65-5.03)
--- NOTE | 2020-11-21 08:21 | Progress Note ---
Assessment and Plan Assessment and plan: (1) Acute respiratory failure with hypoxia Current Visit: Yes Status: Acute Plan to address problem: Continue nasal cannula oxygen and titrate/escalate as needed. High flow nasal cannula oxygen if necessary. Patient tested positive for Covid in urgent care clinic but will repeat the Covid virus test in the hospital IV dexamethasone given-8 mg every 24 hours ID consulted: recommend decadron IV, Remdesivir IV, trend inflammatory markers. D/c abx. (2) SIRS (systemic inflammatory response syndrome) Current Visit: Yes Status: Acute Plan to address problem: All inflammatory markers are high including CRP of 3.40 and high ferritin level of 4190 and LDH of 999 Patient is also tachycardic and tachypneic (3) Bilateral pneumonia Current Visit: Yes Status: Acute Plan to address problem: Bilateral pulmonary pneumonia, viral covid pna. d/c antibiotics, started on decadron and remdesivir. (4) MICHELE (acute kidney injury) Current Visit: Yes Status: Acute Plan to address problem: 1 L of normal saline. To be stopped after 12 hours Vasomotor nephropathy and Covid infection (5) COVID 19 pneumonia patient did not receive vaccine. ID consulted therapies as above. (6) Thrombocytopenia Current Visit: Yes Status: Acute Plan to address problem: Probably secondary to Covid Lovenox was stopped Only SCDs Monitor on CBC. (7) Hyponatremia Current Visit: Yes Status: Acute Plan to address problem: IV normal saline of 1 L and to be discontinued Trend the sodium levels (8) Transaminitis Current Visit: Yes Status: Acute Plan to address problem: Probably secondary to saavedra virus infection hepatitis panel negative Trend transaminases. (9) DVT prophylaxis Current Visit: Yes Status: Acute Plan to address problem: Patient on Lovenox but was discontinued because of the low platelet count of 83,000 History Interval history: 11/21/2020: Patient was satting 99% this morning. He states he was still feeling ill however his breathing was not as labored as yesterday. States his appetite is adequate and he has been eating his meals. Encouraged p.o. hydration on my encounter. Patient will get first dose of remdesivir today. 11/20/2020: Slightly labored breathing on encounter. O2 sat however was 99%, Per RN, patient had just gotten up to go to bathroom off of oxygen supplemntation. Patient had normalized breathing by the end of encounter. patient states that his chest hurts and he is still very short of breath. Patient was requiring 8L NC at the time of encounter. Hospitalist Physical - Constitutional Vitals: Temp Pulse Resp BP Pulse Ox 98.7 F 85 16 123/68 96 11/21/20 04:00 11/20/20 21:33 11/21/20 04:00 11/21/20 04:00 11/20/20 21:54 General appearance: Present: mild distress, well-nourished - EENT Eyes: Present: PERRL, EOM intact ENT: hearing intact, clear oral mucosa, dentition normal - Neck Neck: Present: supple, normal ROM - Respiratory Respiratory effort: normal Respiratory: bilateral: rhonchi - Cardiovascular Rhythm: regular - Extremities Extremities: no ischemia, No edema, normal temperature, normal color, Full ROM Peripheral Pulses: within normal limits - Abdominal General gastrointestinal: soft, non-tender, non-distended - Integumentary Integumentary: Present: clear, warm, dry - Psychiatric Psychiatric: appropriate mood/affect - Neurologic Neurologic: CNII-XII intact HEART Score - HEART Score Troponin: Troponin T < 0.010 ng/mL (0.00-0.029) 11/19/20 12:15 Results - Labs CBC & Chem 7: 11/21/20 06:56 11/21/20 10:11 Labs: Laboratory Last Values WBC 9.2 K/mm3 (4.5-11.0) 11/21/20 06:56 RBC 5.05 M/mm3 (3.65-5.03) H 11/21/20 06:56 Hgb 12.5 gm/dl (11.8-15.2) 11/21/20 06:56 Hct 38.7 % (35.5-45.6) 11/21/20 06:56 MCV 77 fl (84-94) L 11/21/20 06:56 MCH 25 pg (28-32) L 11/21/20 06:56 MCHC 32 % (32-34) 11/21/20 06:56 RDW 14.0 % (13.2-15.2) 11/21/20 06:56 Plt Count 131 K/mm3 (140-440) L 11/21/20 06:56 Lymph % (Auto) 10.2 % (13.4-35.0) L 11/21/20 06:56 [place] % (Auto) 8.6 % (0.0-7.3) H 11/21/20 06:56 Eos % (Auto) 0.0 % (0.0-4.3) 11/21/20 06:56 Baso % (Auto) 0.1 % (0.0-1.8) 11/21/20 06:56 Lymph # (Auto) 0.9 K/mm3 (1.2-5.4) L 11/21/20 06:56 [place] # (Auto) 0.8 K/mm3 (0.0-0.8) 11/21/20 06:56 Eos # (Auto) 0.0 K/mm3 (0.0-0.4) 11/21/20 06:56 Baso # (Auto) 0.0 K/mm3 (0.0-0.1) 11/21/20 06:56 Seg Neutrophils % 81.1 % (40.0-70.0) H 11/21/20 06:56 Seg Neutrophils # 7.5 K/mm3 (1.8-7.7) 11/21/20 06:56 D-Dimer 1284.11 ng/mlDDU (0-234) H 11/19/20 12:15 Sodium 131 mmol/L (137-145) L 11/20/20 07:17 Potassium 4.7 mmol/L (3.6-5.0) 11/20/20 07:17 Chloride 92.9 mmol/L (98-107) L 11/20/20 07:17 Carbon Dioxide 28 mmol/L (22-30) 11/20/20 07:17 Anion Gap 15 mmol/L 11/20/20 07:17 BUN 19 mg/dL (9-20) 11/20/20 07:17 Creatinine 1.1 mg/dL (0.8-1.3) 11/20/20 07:17 Estimated GFR > 60 ml/min 11/20/20 07:17 BUN/Creatinine Ratio 17 % 11/20/20 07:17 Glucose 126 mg/dL (75-100) H 11/20/20 07:17 Hemoglobin A1c 5.1 % (4-6) 11/20/20 07:30 Calcium 8.6 mg/dL (8.4-10.2) 11/20/20 07:17 Ferritin 4190.0 ng/mL (30.0-300.0) H 11/19/20 12:15 Total Bilirubin 0.70 mg/dL (0.1-1.2) 11/20/20 07:17 AST 74 units/L (5-40) H 11/20/20 07:17 ALT 68 units/L (7-56) H 11/20/20 07:17 Alkaline Phosphatase 51 units/L (35-129) 11/20/20 07:17 Lactate Dehydrogenase 999 units/L (91-180) H 11/19/20 12:15 Troponin T < 0.010 ng/mL (0.00-0.029) 11/19/20 12:15 C-Reactive Protein 3.40 mg/dL (0.00-1.30) H 11/19/20 12:15 Total Protein 7.1 g/dL (6.3-8.2) 11/20/20 07:17 Albumin 3.9 g/dL (3.9-5) 11/20/20 07:17 Albumin/Globulin Ratio 1.2 % 11/20/20 07:17 Procalcitonin 0.14 ng/mL (<0.15) 11/19/20 12:15 Hepatitis A IgM Ab Non-reactive (NonReactive) 11/20/20 13:14 Hep Bs Antigen Non-reactive (Negative) 11/20/20 13:14 Hep B Core IgM Ab Non-reactive (NonReactive) 11/20/20 13:14 Hepatitis C Antibody Non-reactive (NonReactive) 11/20/20 13:14 Microbiology: Microbiology 11/19/20 14:30 Peripheral/Venous Blood Culture - Preliminary NO GROWTH AFTER 24 HOURS 11/19/20 14:21 Peripheral/Venous Blood Culture - Preliminary NO GROWTH AFTER 24 HOURS Sebastian/IV: Voiding Method Urinal Active Medications - Current Medications Current Medications: Generic Name Dose Route Start Last Admin Trade Name Freq PRN Reason Stop Dose Admin Acetaminophen 650 mg 11/19/20 23:05 Acetaminophen 325 Mg Tab PO Q4H PRN Pain MILD(1-3)/Fever >100.5/GLEZ Dexamethasone 8 mg 11/20/20 10:00 11/20/20 11:39 Dexamethasone 4 Mg/Ml Vial IV 11/28/20 10:01 8 mg Q24H AIDEN Administration Famotidine 20 mg 11/20/20 10:00 11/20/20 21:32 Famotidine 20 Mg Tab PO 20 mg BID AIDEN Administration Metoclopramide HCl 10 mg 11/19/20 23:05 Metoclopramide 10 Mg/2 Ml Inj IV Q6H PRN Nausea And Vomiting Ondansetron HCl 4 mg 11/19/20 23:05 Ondansetron 4 Mg/2 Ml Inj IV Q8H PRN Nausea And Vomiting Sodium Chloride 10 ml 11/20/20 10:00 11/20/20 21:32 Sodium Chloride 0.9% 10 Ml Flush Syringe IV 10 ml BID AIDEN Administration Sodium Chloride 10 ml 11/19/20 23:05 Sodium Chloride 0.9% 10 Ml Flush Syringe IV PRN PRN LINE FLUSH
[2020-11-21] MEDS: FAMOTIDINE 20 MG TAB PO SCH ×2 (10:29→22:05)
[2020-11-21] MEDS: dexAMETHasone 4 MG/ML VIAL IV SCH (10:29)
[2020-11-21] MEDS ORDERED: REMDESIVIR 200 MG in SODIUM CHLORIDE 0.9% 250ML 250 ML IV ONE (11:00)
[2020-11-21 11:05] LABS: Alanine Aminotransferase 67 units/L (7-56); Albumin 3.7 g/dL (3.9-5); BUN/Creatinine Ratio 13; Blood Urea Nitrogen 15 mg/dL (9-20); Calcium 8.7 mg/dL (8.4-10.2); Hemolysis Index 8
--- NOTE | 2020-11-21 11:14 | Progress Note ---
Assessment and Plan Cultures: Blood culture no growth so far Covid PCR: Positive as outpatient, pending as inpatient. A/P: 28-year-old man with obesity presented to hospital with COVID-19 mono. #Severe COVID-19 pneumonia: Patient presented with a week of symptoms, chest x- ray with diffuse bilateral infiltrates, admission O2 sats 87%on room air. Inflammatory markers elevated #Acute hypoxemic respiratory failure: Likely secondary to COVID-19 infection. Currently on 7 L nasal cannula #Obesity Recs: -Dexamethasone 8 mg daily, okay with higher dosing due to obesity -Remdesivir 200 mg IV q day x 1 followed by 100 mg IV q day x 4 days -Obtain q48-72h inflammatory markers - ferritin, Ddimer, CRP, LDH -Stopped antibiotics due to normal procalcitonin -Anticoagulation per hospital protocol -Proning as able Thank you for the consult, we will continue to follow. Benny Valverde MD [facility] ([facility] O: [phone] F: [phone] Subjective Date of service: 11/21/20 Interval history: Afebrile, normal white count. Currently on 7 L salter nasal cannula. Objective - Exam Narrative Exam: Physical exam deferred to reduce risk of transmission of COVID-19. Please refer to primary team's note. - Constitutional Vitals: Vital Signs Temp Pulse Resp BP Pulse Ox 98.7 F 85 16 123/68 97 11/21/20 04:00 11/20/20 21:33 11/21/20 04:00 11/21/20 04:00 11/21/20 10:00 Temperature -Last 24 Hours Temperature 98.7 F Temperature 98.2 F Temperature 99.0 F Temperature 98.2 F - Labs CBC & Chem 7: 11/21/20 06:56 11/21/20 10:11 Labs: Abnormal lab results 11/21/20 11/21/20 Range/Units 06:56 10:11 RBC 5.05 H (3.65-5.03) M/mm3 MCV 77 L (84-94) fl MCH 25 L (28-32) pg Plt Count 131 L (140-440) K/mm3 Lymph % (Auto) 10.2 L (13.4-35.0) % [place] % (Auto) 8.6 H (0.0-7.3) % Lymph # (Auto) 0.9 L (1.2-5.4) K/mm3 Seg Neutrophils % 81.1 H (40.0-70.0) % Sodium 132 L (137-145) mmol/L Chloride 93.0 L (98-107) mmol/L Carbon Dioxide 35 H D (22-30) mmol/L Glucose 114 H (75-100) mg/dL AST 62 H (5-40) units/L ALT 67 H (7-56) units/L Albumin 3.7 L (3.9-5) g/dL
[2020-11-21] MEDS: SODIUM CHLORIDE 0.9% 50 ML IVPB IV SCH (12:16)
[2020-11-22 07:27] LABS: Basophils # (Auto) 0.1 K/mm3 (0.0-0.1); Monocytes % (Auto) 14.7 % (0.0-7.3)
[2020-11-22 07:40] LABS: Alanine Aminotransferase 159 units/L (7-56); Albumin 3.7 g/dL (3.9-5); BUN/Creatinine Ratio 18; Blood Urea Nitrogen 18 mg/dL (9-20); Hemolysis Index 7
[2020-11-22 07:43] LABS: Hematocrit 38.5 % (35.5-45.6); Hemoglobin 12.5 gm/dl (11.8-15.2); Mean Corpuscular HGB Conc 32 % (32-34); Mean Corpuscular Volume 77 fl (84-94); Red Cell Distribution Width 14.2 % (13.2-15.2)
[2020-11-22 07:57] LABS: Platelet Count 155 K/mm3 (140-440)
[2020-11-22 07:59] LABS: Basophils % (Auto) 0.2 % (0.0-1.8); Lymphocytes # (Auto) 0.9 K/mm3 (1.2-5.4)
[2020-11-22] MEDS ORDERED: DEXAMETHASONE 4 MG TAB PO SCH (10:00)
[2020-11-22] MEDS: FAMOTIDINE 20 MG TAB PO SCH ×2 (10:25→21:50)
[2020-11-22 10:26] LABS: Total Cells Counted 100
[2020-11-22 10:35] LABS: Giant Platelets Few; Hypochromasia 1+; Platelet Estimate Consistent w Auto
--- NOTE | 2020-11-22 13:34 | Progress Note ---
Assessment and Plan Cultures: Blood culture no growth so far Covid PCR: Positive as outpatient, pending as inpatient. A/P: 28-year-old man with obesity presented to hospital with COVID-19 mono. #Severe COVID-19 pneumonia: Patient presented with a week of symptoms, chest x- ray with diffuse bilateral infiltrates, admission O2 sats 87%on room air. Inflammatory markers elevated. Markers downtrending. #Acute hypoxemic respiratory failure: Likely secondary to COVID-19 infection. Improving. Currently on 4 L nasal cannula #Obesity #Thrombocytopenia: Improving, likely secondary to #Elevated status: Likely secondary to COVID-19/due to severe Recs: -Continue dexamethasone 8 mg daily, okay with higher dosing due to obesity -Continue remdesivir D2 of 5 -Obtain q48-72h inflammatory markers - ferritin, Ddimer, CRP, LDH -Anticoagulation per hospital protocol -Proning as able Lauryn Infante MD [facility] ([facility]) Office [phone] Subjective Date of service: 11/22/20 Principal diagnosis: COVID-19 Interval history: Remains on salter O2 5 L, remains with cough, no fever. Objective - Exam Narrative Exam: General appearance: Alert in NAD Eyes: anicteric sclerae, moist conjunctivae; no lid-lag; PERRLA HENT: Normocephalic, Atraumatic; normal external ears, nares open, oropharynx clear with moist mucous membranes and no oral thrush Neck: supple, tracheal midline, no JVD Lungs: Bilateral coarse breath sounds CV: RRR no murmur Abdomen: Soft, non-tender; no masses or hepatosplenomegaly Extremities: no edema, no cyanosis Skin: No rash. Psych: no agitated Neuro: alert and oriented x 3. Moving all extermities - Constitutional Vitals: Vital Signs Temp Pulse Resp BP Pulse Ox 98.7 F 86 19 108/62 97 11/22/20 11:15 11/22/20 11:15 11/22/20 11:15 11/22/20 11:15 11/22/20 11:15 Temperature -Last 24 Hours Temperature 98.7 F Temperature 98.5 F Temperature 98.0 F Temperature 98.8 F - Labs CBC & Chem 7: 11/22/20 06:36 11/22/20 06:36 Labs: Abnormal lab results 11/22/20 11/22/20 11/22/20 Range/Units 06:36 06:36 06:36 MCV 77 L (84-94) fl MCH 25 L (28-32) pg Lymph % (Auto) 13.0 L (13.4-35.0) % [place] % (Auto) 14.7 H (0.0-7.3) % Lymph # (Auto) 0.9 L (1.2-5.4) K/mm3 [place] # (Auto) 1.0 H (0.0-0.8) K/mm3 Seg Neutrophils % 70.3 H (40.0-70.0) % Seg Neuts % (Manual) 79.0 H (40.0-70.0) % Lymphocytes % (Manual) 11.0 L (13.4-35.0) % Monocytes % (Manual) 10.0 H (0.0-7.3) % Lymphocytes # (Manual) 0.7 L (1.2-5.4) K/mm3 D-Dimer 454.42 H (0-234) ng/mlDDU Sodium 133 L (137-145) mmol/L Chloride 95.0 L (98-107) mmol/L Carbon Dioxide 33 H (22-30) mmol/L Glucose 101 H (75-100) mg/dL Ferritin (30.0-300.0) ng/mL AST 97 H (5-40) units/L ALT 159 H (7-56) units/L Lactate Dehydrogenase 1159 H (91-180) units/L C-Reactive Protein 4.30 H (0.00-1.30) mg/dL Albumin 3.7 L (3.9-5) g/dL 11/22/20 Range/Units 06:37 MCV (84-94) fl MCH (28-32) pg Lymph % (Auto) (13.4-35.0) % [place] % (Auto) (0.0-7.3) % Lymph # (Auto) (1.2-5.4) K/mm3 Ross # (Auto) (0.0-0.8) K/mm3 Seg Neutrophils % (40.0-70.0) % Seg Neuts % (Manual) (40.0-70.0) % Lymphocytes % (Manual) (13.4-35.0) % Monocytes % (Manual) (0.0-7.3) % Lymphocytes # (Manual) (1.2-5.4) K/mm3 D-Dimer (0-234) ng/mlDDU Sodium (137-145) mmol/L Chloride (98-107) mmol/L Carbon Dioxide (22-30) mmol/L Glucose (75-100) mg/dL Ferritin 1157.0 H (30.0-300.0) ng/mL AST (5-40) units/L ALT (7-56) units/L Lactate Dehydrogenase (91-180) units/L C-Reactive Protein (0.00-1.30) mg/dL Albumin (3.9-5) g/dL
--- NOTE | 2020-11-22 15:38 | Progress Note ---
Assessment and Plan Assessment and plan: (1) Acute respiratory failure with hypoxia Current Visit: Yes Status: Acute Plan to address problem: Continue nasal cannula oxygen and titrate/escalate as needed. High flow nasal cannula oxygen if necessary. Patient tested positive for Covid in urgent care clinic but will repeat the Covid virus test in the hospital IV dexamethasone given-8 mg every 12 hours ID consulted: recommend decadron IV, Remdesivir IV, trend inflammatory markers. D/c abx. Trend inflammatory markers (2) SIRS (systemic inflammatory response syndrome) Current Visit: Yes Status: Acute Plan to address problem: All inflammatory markers are high including CRP of 3.40 and high ferritin level of 4190 and LDH of 999 Patient is also tachycardic and tachypneic Management as above (3) Bilateral pneumonia Current Visit: Yes Status: Acute Plan to address problem: Bilateral pulmonary pneumonia, viral covid pna. d/c antibiotics, started on decadron and remdesivir. Management as above (4) MICHELE (acute kidney injury)resolved Current Visit: Yes Status: Acute Plan to address problem: 1 L of normal saline. To be stopped after 12 hours Vasomotor nephropathy and Covid infection MICHELE now resolved. (5) COVID 19 pneumonia patient did not receive vaccine. ID consulted therapies as above. (6) Thrombocytopenia Current Visit: Yes Status: Acute Plan to address problem: Probably secondary to Covid Lovenox was stopped Only SCDs Monitor on CBC. (7) Hyponatremia Current Visit: Yes Status: Acute Plan to address problem: IV normal saline of 1 L and to be discontinued Trend the sodium levels (8) Transaminitis Current Visit: Yes Status: Acute Plan to address problem: Probably secondary to saavedra virus infection hepatitis panel negative Trend transaminases. (9) DVT prophylaxis Current Visit: Yes Status: Acute Plan to address problem: Patient on Lovenox but was discontinued because of the low platelet count of 83,000. Continue to monitor Full code Regular diet Dispo: Pending clinical improvement of respiratory symptoms. History Interval history: 11/22/2020: Patient resting comfortably. Saturating at 97% on bedside encounter. He is still requiring supplemental oxygen at NC 6 L. He still continues to feel chest tightness however his breathing is no longer labored and he feels as though he is improving. Patient will continue remdesivir course. We will double steroid dose due to patient body weight. 11/21/2020: Patient was satting 99% this morning. He states he was still feeling ill however his breathing was not as labored as yesterday. States his appetite is adequate and he has been eating his meals. Encouraged p.o. hydration on my encounter. Patient will get first dose of remdesivir today. 11/20/2020: Slightly labored breathing on encounter. O2 sat however was 99%, Per RN, patient had just gotten up to go to bathroom off of oxygen supplemntation. Patient had normalized breathing by the end of encounter. patient states that his chest hurts and he is still very short of breath. Patient was requiring 8L NC at the time of encounter. Hospitalist Physical - Constitutional Vitals: Temp Pulse Resp BP Pulse Ox 98.7 F 86 19 108/62 97 11/22/20 11:15 11/22/20 11:15 11/22/20 11:15 11/22/20 11:15 11/22/20 11:15 General appearance: Present: no acute distress, well-nourished, other (fatigue) - EENT Eyes: Present: PERRL, EOM intact ENT: hearing intact, clear oral mucosa, dentition normal - Neck Neck: Present: supple, normal ROM - Respiratory Respiratory effort: normal Respiratory: bilateral: diminished - Cardiovascular Rhythm: regular - Extremities Extremities: no ischemia, No edema, Full ROM Peripheral Pulses: within normal limits - Abdominal General gastrointestinal: soft, non-tender, non-distended - Integumentary Integumentary: Present: clear, warm, dry - Psychiatric Psychiatric: appropriate mood/affect, memory intact - Neurologic Neurologic: CNII-XII intact, moves all extremities HEART Score - HEART Score Troponin: Troponin T < 0.010 ng/mL (0.00-0.029) 11/19/20 12:15 Results - Labs CBC & Chem 7: 11/22/20 06:36 11/22/20 06:36 Labs: Laboratory Last Values WBC 6.6 K/mm3 (4.5-11.0) 11/22/20 06:36 RBC 5.00 M/mm3 (3.65-5.03) 11/22/20 06:36 Hgb 12.5 gm/dl (11.8-15.2) 11/22/20 06:36 Hct 38.5 % (35.5-45.6) 11/22/20 06:36 MCV 77 fl (84-94) L 11/22/20 06:36 MCH 25 pg (28-32) L 11/22/20 06:36 MCHC 32 % (32-34) 11/22/20 06:36 RDW 14.2 % (13.2-15.2) 11/22/20 06:36 Plt Count 155 K/mm3 (140-440) 11/22/20 06:36 Lymph % (Auto) 13.0 % (13.4-35.0) L 11/22/20 06:36 [place] % (Auto) 14.7 % (0.0-7.3) H 11/22/20 06:36 Eos % (Auto) 0.0 % (0.0-4.3) 11/22/20 06:36 Baso % (Auto) 0.2 % (0.0-1.8) 11/22/20 06:36 Lymph # (Auto) 0.9 K/mm3 (1.2-5.4) L 11/22/20 06:36 [place] # (Auto) 1.0 K/mm3 (0.0-0.8) H 11/22/20 06:36 Eos # (Auto) 0.0 K/mm3 (0.0-0.4) 11/22/20 06:36 Baso # (Auto) 0.1 K/mm3 (0.0-0.1) 11/22/20 06:36 Add Manual Diff Complete 11/22/20 06:36 Total Counted 100 11/22/20 06:36 Seg Neutrophils % 70.3 % (40.0-70.0) H 11/22/20 06:36 Seg Neuts % (Manual) 79.0 % (40.0-70.0) H 11/22/20 06:36 Lymphocytes % (Manual) 11.0 % (13.4-35.0) L 11/22/20 06:36 Monocytes % (Manual) 10.0 % (0.0-7.3) H 11/22/20 06:36 Nucleated RBC % Not Reportable 11/22/20 06:36 Seg Neutrophils # 4.6 K/mm3 (1.8-7.7) 11/22/20 06:36 Seg Neutrophils # Man 5.2 K/mm3 (1.8-7.7) 11/22/20 06:36 Band Neutrophils # 0.0 K/mm3 11/22/20 06:36 Lymphocytes # (Manual) 0.7 K/mm3 (1.2-5.4) L 11/22/20 06:36 Abs React Lymphs (Man) 0.0 K/mm3 11/22/20 06:36 Monocytes # (Manual) 0.7 K/mm3 (0.0-0.8) 11/22/20 06:36 Eosinophils # (Manual) 0.0 K/mm3 (0.0-0.4) 11/22/20 06:36 Basophils # (Manual) 0.0 K/mm3 (0.0-0.1) 11/22/20 06:36 Metamyelocytes # 0.0 K/mm3 11/22/20 06:36 Myelocytes # 0.0 K/mm3 11/22/20 06:36 Promyelocytes # 0.0 K/mm3 11/22/20 06:36 Blast Cells # 0.0 K/mm3 11/22/20 06:36 WBC Morphology Not Reportable 11/22/20 06:36 Hypersegmented Neuts Not Reportable 11/22/20 06:36 Hyposegmented Neuts Not Reportable 11/22/20 06:36 Hypogranular Neuts Not Reportable 11/22/20 06:36 Smudge Cells Not Reportable 11/22/20 06:36 Toxic Granulation Not Reportable 11/22/20 06:36 Toxic Vacuolation Not Reportable 11/22/20 06:36 Dohle Bodies Not Reportable 11/22/20 06:36 Pelger-Huet Anomaly Not Reportable 11/22/20 06:36 Gopi Rods Not Reportable 11/22/20 06:36 Platelet Estimate Consistent w auto 11/22/20 06:36 Clumped Platelets Not Reportable 11/22/20 06:36 Plt Clumps, EDTA Not Reportable 11/22/20 06:36 Large Platelets Not Reportable 11/22/20 06:36 Giant Platelets Few 11/22/20 06:36 Platelet Satelliting Not Reportable 11/22/20 06:36 Plt Morphology Comment Not Reportable 11/22/20 06:36 RBC Morphology Not Reportable 11/22/20 06:36 Dimorphic RBCs Not Reportable 11/22/20 06:36 Polychromasia Not Reportable 11/22/20 06:36 Hypochromasia 1+ 11/22/20 06:36 Poikilocytosis Not Reportable 11/22/20 06:36 Anisocytosis Not Reportable 11/22/20 06:36 Microcytosis Not Reportable 11/22/20 06:36 Macrocytosis Not Reportable 11/22/20 06:36 Spherocytes Not Reportable 11/22/20 06:36 Pappenheimer Bodies Not Reportable 11/22/20 06:36 Sickle Cells Not Reportable 11/22/20 06:36 Target Cells Not Reportable 11/22/20 06:36 Tear Drop Cells Not Reportable 11/22/20 06:36 Ovalocytes Not Reportable 11/22/20 06:36 Helmet Cells Not Reportable 11/22/20 06:36 [place] Bodies Not Reportable 11/22/20 06:36 [place] Rings Not Reportable 11/22/20 06:36 [place] Cells Not Reportable 11/22/20 06:36 Bite Cells Not Reportable 11/22/20 06:36 Crenated Cell Not Reportable 11/22/20 06:36 Elliptocytes Not Reportable 11/22/20 06:36 Acanthocytes (Spur) Not Reportable 11/22/20 06:36 Rouleaux Not Reportable 11/22/20 06:36 Hemoglobin C Crystals Not Reportable 11/22/20 06:36 Schistocytes Not Reportable 11/22/20 06:36 Malaria parasites Not Reportable 11/22/20 06:36 Darrell Bodies Not Reportable 11/22/20 06:36 Hem Pathologist Commnt No 11/22/20 06:36 D-Dimer 454.42 ng/mlDDU (0-234) H 11/22/20 06:36 Sodium 133 mmol/L (137-145) L 11/22/20 06:36 Potassium 4.9 mmol/L (3.6-5.0) 11/22/20 06:36 Chloride 95.0 mmol/L (98-107) L 11/22/20 06:36 Carbon Dioxide 33 mmol/L (22-30) H 11/22/20 06:36 Anion Gap 10 mmol/L 11/22/20 06:36 BUN 18 mg/dL (9-20) 11/22/20 06:36 Creatinine 1.0 mg/dL (0.8-1.3) 11/22/20 06:36 Estimated GFR > 60 ml/min 11/22/20 06:36 BUN/Creatinine Ratio 18 % 11/22/20 06:36 Glucose 101 mg/dL (75-100) H 11/22/20 06:36 Hemoglobin A1c 5.1 % (4-6) 11/20/20 07:30 Calcium 9.0 mg/dL (8.4-10.2) 11/22/20 06:36 Ferritin 1157.0 ng/mL (30.0-300.0) H 11/22/20 06:37 Total Bilirubin 0.80 mg/dL (0.1-1.2) 11/22/20 06:36 AST 97 units/L (5-40) H 11/22/20 06:36 ALT 159 units/L (7-56) H 11/22/20 06:36 Alkaline Phosphatase 62 units/L (35-129) 11/22/20 06:36 Lactate Dehydrogenase 1159 units/L (91-180) H 11/22/20 06:36 Troponin T < 0.010 ng/mL (0.00-0.029) 11/19/20 12:15 C-Reactive Protein 4.30 mg/dL (0.00-1.30) H 11/22/20 06:36 Total Protein 7.0 g/dL (6.3-8.2) 11/22/20 06:36 Albumin 3.7 g/dL (3.9-5) L 11/22/20 06:36 Albumin/Globulin Ratio 1.1 % 11/22/20 06:36 Procalcitonin 0.14 ng/mL (<0.15) 11/19/20 12:15 Hepatitis A IgM Ab Non-reactive (NonReactive) 11/20/20 13:14 Hep Bs Antigen Non-reactive (Negative) 11/20/20 13:14 Hep B Core IgM Ab Non-reactive (NonReactive) 11/20/20 13:14 Hepatitis C Antibody Non-reactive (NonReactive) 11/20/20 13:14 Microbiology: Microbiology 11/19/20 14:30 Peripheral/Venous Blood Culture - Preliminary NO GROWTH AFTER 48 HOURS 11/19/20 14:21 Peripheral/Venous Blood Culture - Preliminary NO GROWTH AFTER 48 HOURS Sebastian/IV: Voiding Method Urinal Active Medications - Current Medications Current Medications: Generic Name Dose Route Start Last Admin Trade Name Freq PRN Reason Stop Dose Admin Acetaminophen 650 mg 11/19/20 23:05 Acetaminophen 325 Mg Tab PO Q4H PRN Pain MILD(1-3)/Fever >100.5/GLEZ Dexamethasone 8 mg 11/22/20 16:00 Dexamethasone 4 Mg Tab PO 11/28/20 12:59 Q12HR AIDEN Famotidine 20 mg 11/20/20 10:00 11/22/20 10:25 Famotidine 20 Mg Tab PO 20 mg BID AIDEN Administration REMDESIVIR 100 mg/ Sodium 250 mls @ 500 mls/hr 11/22/20 21:00 Chloride IV 11/25/20 21:29 Q24HR@2100 AIDEN Ondansetron HCl 4 mg 11/19/20 23:05 Ondansetron 4 Mg/2 Ml Inj IV Q8H PRN Nausea And Vomiting Sodium Chloride 10 ml 11/20/20 10:00 11/22/20 10:25 Sodium Chloride 0.9% 10 Ml Flush Syringe IV 10 ml BID AIDEN Administration Sodium Chloride 10 ml 11/19/20 23:05 Sodium Chloride 0.9% 10 Ml Flush Syringe IV PRN PRN LINE FLUSH Sodium Chloride 50 ml 11/21/20 11:30 11/21/20 12:16 Sodium Chloride 0.9% 50 Ml Ivpb IV 11/25/20 21:01 50 ml Q24HR@2100 AIDEN Administration
[2020-11-22] MEDS: DEXAMETHASONE 4 MG TAB PO SCH ×2 (16:02→21:50)
[2020-11-22] MEDS: REMDESIVIR 100 MG in SODIUM CHLORIDE 0.9% 250ML 250 ML IV SCH (21:51)
[2020-11-22] MEDS: SODIUM CHLORIDE 0.9% 50 ML IVPB IV SCH (21:51)
[2020-11-23 06:45] LABS: Alanine Aminotransferase 138 units/L (7-56); Albumin 3.6 g/dL (3.9-5); BUN/Creatinine Ratio 19; Blood Urea Nitrogen 19 mg/dL (9-20); Calcium 9.2 mg/dL (8.4-10.2); Hemolysis Index 5
[2020-11-23] MEDS ORDERED: SODIUM BICARB 8.4% 50 MEQ/50 ML SYRINGE IV ONE (09:00)
[2020-11-23] MEDS ORDERED: SODIUM POLYSTYRENE 15 GM/60 ML ORAL LIQD PO ONE (09:30)
[2020-11-23] MEDS: DEXAMETHASONE 4 MG TAB PO SCH ×2 (10:57→22:13)
[2020-11-23] MEDS: FAMOTIDINE 20 MG TAB PO SCH ×2 (10:57→22:13)
[2020-11-23] MEDS: CHOLECALCIFEROL (VIT D3) 5,000 UNIT TAB PO SCH (11:02)
[2020-11-23] MEDS: ASCORBIC ACID 500 MG TAB PO SCH ×2 (11:02→22:13)
[2020-11-23] MEDS: ZINC SULFATE 220 MG CAP PO SCH ×2 (11:03→22:13)
--- NOTE | 2020-11-23 14:51 | Progress Note ---
Assessment and Plan --Acute respiratory failure with hypoxia Continue nasal cannula oxygen and titrate/escalate as needed. High flow nasal cannula oxygen if necessary. Patient tested positive for Covid in urgent care clinic IV dexamethasone given-8 mg every 12 hours ID consulted: recommend decadron IV, Remdesivir IV, trend inflammatory markers. off abx. Trend inflammatory markers -- SIRS (systemic inflammatory response syndrome) All inflammatory markers are high including CRP of 3.40 and high ferritin level of 4190 and LDH of 999 Patient is also tachycardic and tachypneic. Management as above -- Bilateral COVID 19 pneumonia Patient did not receive COVID-19 vaccine d/c antibiotics, started on decadron and remdesivir. -- MICHELE (acute kidney injury)resolved s/p iv fluid Vasomotor nephropathy and Covid infection MICHELE now resolved. -- Thrombocytopenia Probably secondary to Covid Lovenox was stopped Only SCDs Monitor on CBC. -- Hyponatremia, improved with IV fluid -- Transaminitis Probably secondary to saavedra virus infection hepatitis panel negative Trend transaminases. -- DVT prophylaxis Patient on Lovenox but was discontinued because of the low platelet count of 83,000. Continue to monitor Full code Regular diet Dispo: Pending clinical improvement of respiratory symptoms. Daily clinical course: 11/20/2020: Slightly labored breathing on encounter. O2 sat however was 99%, Per RN, patient had just gotten up to go to bathroom off of oxygen supplemntation. Patient had normalized breathing by the end of encounter. patient states that his chest hurts and he is still very short of breath. Patient was requiring 8L NC at the time of encounter. 11/21/2020: Patient was satting 99% this morning. He states he was still feeling ill however his breathing was not as labored as yesterday. States his appetite is adequate and he has been eating his meals. Encouraged p.o. hydration on my encounter. Patient will get first dose of remdesivir today. 11/22/2020: Patient resting comfortably. Saturating at 97% on bedside encounter. He is still requiring supplemental oxygen at NC 6 L. He still continues to feel chest tightness however his breathing is no longer labored and he feels as though he is improving. Patient will continue remdesivir course. We will double steroid dose due to patient body weight. 11/23/20: Continue dexamethasone and remdesivir. Continue to follow inflammatory markers. Patient remains on 3 to 4 L supplemental O2. Continue to follow clinically and wean off O2 as tolerated. Subjective Date of service: 11/23/20 Principal diagnosis: COVID-19 Interval history: Patient seen and examined. Medical records and medication list reviewed. No acute event overnight noted by the RN. Patient on 4 L nasal O2. Patient is tolerating diet. Lying on bed on pron position Discussed plan of care at bedside with patient. Objective - Exam Narrative Exam: Limited physical exam due to COVID-19 pandemic to minimize transmission of the disease and to preserve PPE. Vital reviewed and stable. GENERAL: well-developed well-nourished -[place]ian male lying on bed appeared to be in no discomfort. HEENT: Normocephalic. Atraumatic. NECK: Supple. CHEST/LUNGS: breathing nonlabored. HEART/CARDIOVASCULAR: Heart rate stable on telemetry ABDOMEN: Visibly not distended SKIN: There is no rash NEURO: No focal motor deficit. Follows command. MUSCULOSKELETAL: No joint effusion EXTRIMITY: No swelling, no cyanosis or clubbing. PSYCH: Cooperative. - Constitutional Vitals: Vital Signs - 12hr 11/23/20 11/23/20 11/23/20 04:44 11:28 11:29 Temperature 98.0 F 97.4 F L Pulse Rate 84 81 Respiratory 16 20 Rate Blood Pressure 119/62 127/64 O2 Sat by Pulse 99 98 Oximetry - Labs CBC & Chem 7: 11/22/20 06:36 11/24/20 05:58 Labs: Abnormal lab results 11/23/20 Range/Units 05:50 Sodium 134 L (137-145) mmol/L Potassium 5.5 H (3.6-5.0) mmol/L Chloride 97.2 L (98-107) mmol/L Glucose 171 H (75-100) mg/dL AST 48 H (5-40) units/L ALT 138 H (7-56) units/L Albumin 3.6 L (3.9-5) g/dL HEART Score - HEART Score Troponin: Troponin T < 0.010 ng/mL (0.00-0.029) 11/19/20 12:15
--- NOTE | 2020-11-23 16:01 | Progress Note ---
Assessment and Plan Cultures: Blood culture no growth so far Covid PCR: Positive as outpatient, pending as inpatient. A/P: 28-year-old man with obesity presented to hospital with COVID-19 mono. #Severe COVID-19 pneumonia: Patient presented with a week of symptoms, chest x- ray with diffuse bilateral infiltrates, admission O2 sats 87%on room air. Inflammatory markers elevated. Markers downtrending. #Acute hypoxemic respiratory failure: Likely secondary to COVID-19 infection. Improving. Remains on 5 L nasal cannula. #Obesity #Thrombocytopenia: Improving, likely secondary to #Elevated status: Likely secondary to COVID-19/due to severe Recs: -Continue dexamethasone 8 mg daily -Continue remdesivir D3 of 5 -Obtain q48-72h inflammatory markers - ferritin, Ddimer, CRP, LDH, will check tomorrow -Anticoagulation per hospital protocol -Proning as able Lauryn Infante MD [facility] ([facility]) Office [phone] Subjective Principal diagnosis: COVID-19 Objective - Constitutional Vitals: Vital Signs Temp Pulse Resp BP Pulse Ox 97.4 F L 81 20 127/64 98 11/23/20 11:28 11/23/20 11:29 11/23/20 11:28 11/23/20 11:28 11/23/20 11:29 Temperature -Last 24 Hours Temperature 97.4 F Temperature 98.0 F Temperature 97.9 F - Labs CBC & Chem 7: 11/22/20 06:36 11/23/20 05:50 Labs: Abnormal lab results 11/23/20 Range/Units 05:50 Sodium 134 L (137-145) mmol/L Potassium 5.5 H (3.6-5.0) mmol/L Chloride 97.2 L (98-107) mmol/L Glucose 171 H (75-100) mg/dL AST 48 H (5-40) units/L ALT 138 H (7-56) units/L Albumin 3.6 L (3.9-5) g/dL
[2020-11-23] MEDS: REMDESIVIR 100 MG in SODIUM CHLORIDE 0.9% 250ML 250 ML IV SCH (22:13)
[2020-11-23] MEDS: SODIUM CHLORIDE 0.9% 50 ML IVPB IV SCH (22:13)
[2020-11-24] MEDS: ZINC SULFATE 220 MG CAP PO SCH ×2 (07:00→09:08)
[2020-11-24 07:24] LABS: Alanine Aminotransferase 160 units/L (7-56); Albumin 3.6 g/dL (3.9-5); BUN/Creatinine Ratio 18; Blood Urea Nitrogen 16 mg/dL (9-20); Calcium 9.2 mg/dL (8.4-10.2); Hemolysis Index 5
[2020-11-24] MEDS: DEXAMETHASONE 4 MG TAB PO SCH ×2 (09:08→22:00)
[2020-11-24] MEDS: CHOLECALCIFEROL (VIT D3) 5,000 UNIT TAB PO SCH (09:08)
[2020-11-24] MEDS: FAMOTIDINE 20 MG TAB PO SCH ×2 (09:08→22:00)
[2020-11-24] MEDS: ASCORBIC ACID 500 MG TAB PO SCH (09:08)
--- NOTE | 2020-11-24 13:06 | Progress Note ---
Assessment and Plan --Acute respiratory failure with hypoxia Patient presented with a chest x-ray with diffuse bilateral infiltrates, admission O2 sats 87%on room air. Continue nasal cannula oxygen and titrate/escalate as needed. High flow nasal cannula oxygen if necessary. Patient tested positive for Covid in urgent care clinic IV dexamethasone given-8 mg every 12 hours ID consulted: recommend decadron IV, Remdesivir IV, trend inflammatory markers. off abx. Trend inflammatory markers -- SIRS (systemic inflammatory response syndrome) All inflammatory markers were high including CRP of 3.40 and high ferritin level of 4190 and LDH of 999 Patient is also tachycardic and tachypneic. Management as above -- Bilateral COVID 19 pneumonia Patient did not receive COVID-19 vaccine d/c antibiotics, started on decadron and remdesivir. -- MICHELE (acute kidney injury)resolved s/p iv fluid Vasomotor nephropathy and Covid infection MICHELE now resolved. -- Thrombocytopenia Probably secondary to Covid Lovenox was stopped Only SCDs Monitor on CBC. -- Hyponatremia, improved with IV fluid -- Transaminitis Probably secondary to saavedra virus infection hepatitis panel negative Trend transaminases. -- DVT prophylaxis Patient on Lovenox but was discontinued because of the low platelet count of 83,000. Continue to monitor Full code Regular diet Dispo: Pending clinical improvement of respiratory symptoms. Daily clinical course: 11/20/2020: Slightly labored breathing on encounter. O2 sat however was 99%, Per RN, patient had just gotten up to go to bathroom off of oxygen supplemntation. Patient had normalized breathing by the end of encounter. patient states that his chest hurts and he is still very short of breath. Patient was requiring 8L NC at the time of encounter. 11/21/2020: Patient was satting 99% this morning. He states he was still feeling ill however his breathing was not as labored as yesterday. States his appetite is adequate and he has been eating his meals. Encouraged p.o. hydration on my encounter. Patient will get first dose of remdesivir today. 11/22/2020: Patient resting comfortably. Saturating at 97% on bedside encounter. He is still requiring supplemental oxygen at NC 6 L. He still continues to feel chest tightness however his breathing is no longer labored and he feels as though he is improving. Patient will continue remdesivir course. We will double steroid dose due to patient body weight. 11/23/20: Continue dexamethasone and remdesivir. Continue to follow inflammatory markers. Patient remains on 3 to 4 L supplemental O2. Continue to follow clinically and wean off O2 as tolerated. 06/27/20: Patient now resting on room air, day 4 of remdesivir today. Continue dexamethasone. Inflammatory markers trending down. Possible discharge tomorrow if clinically remains stable after fifth dose of remdesivir. Subjective Date of service: 11/24/20 Principal diagnosis: COVID-19 Interval history: Patient seen and examined. Medical records and medication list reviewed. No acute event overnight noted by the RN. Patient on room air. Patient is tolerating diet. Able to ambulate without dropping oxygen saturation Discussed plan of care at bedside with patient. Objective - Exam Narrative Exam: Limited physical exam due to COVID-19 pandemic to minimize transmission of the disease and to preserve PPE. Vital reviewed and stable. GENERAL: well-developed well-nourished -[place]ian male lying on bed appeared to be in no discomfort. HEENT: Normocephalic. Atraumatic. NECK: Supple. CHEST/LUNGS: breathing nonlabored. HEART/CARDIOVASCULAR: Heart rate stable on telemetry ABDOMEN: Visibly not distended SKIN: There is no rash NEURO: No focal motor deficit. Follows command. MUSCULOSKELETAL: No joint effusion EXTRIMITY: No swelling, no cyanosis or clubbing. PSYCH: Cooperative. - Constitutional Vitals: Vital Signs - 12hr 11/24/20 11/24/20 11/24/20 05:21 08:26 12:41 Temperature 98.3 F 98.4 F Pulse Rate 62 76 Respiratory 18 16 Rate Blood Pressure 117/71 120/65 O2 Sat by Pulse 98 98 95 Oximetry - Labs CBC & Chem 7: 11/22/20 06:36 11/24/20 05:58 Labs: Abnormal lab results 11/24/20 Range/Units 05:58 Sodium 134 L (137-145) mmol/L Chloride 96.1 L (98-107) mmol/L Glucose 158 H (75-100) mg/dL AST 50 H (5-40) units/L ALT 160 H (7-56) units/L Albumin 3.6 L (3.9-5) g/dL HEART Score - HEART Score Troponin: Troponin T < 0.010 ng/mL (0.00-0.029) 11/19/20 12:15
--- NOTE | 2020-11-24 16:23 | Progress Note ---
Assessment and Plan Cultures: Blood culture no growth so far Covid PCR: Positive as outpatient, pending as inpatient. A/P: 28-year-old man with obesity presented to hospital with COVID-19 mono. #Severe COVID-19 pneumonia: Patient presented with a week of symptoms, chest x- ray with diffuse bilateral infiltrates, admission O2 sats 87%on room air. Inflammatory markers elevated. Markers downtrending. #Acute hypoxemic respiratory failure: Likely secondary to COVID-19 infection. Improving. Remains on 4 L nasal cannula. #Obesity #Thrombocytopenia: Improving, likely secondary to #Elevated status: Likely secondary to COVID-19/due to remdesivir, worsening but not higher than 10X normal Recs: -Continue dexamethasone 8 mg daily for 10 days -Continue remdesivir D4 of 5 -Obtain q48-72h inflammatory markers - ferritin, Ddimer, CRP, LDH, ordered -Anticoagulation per hospital protocol -Proning as able Lauryn Infante MD [facility] ([facility]) Office [phone] Subjective Date of service: 11/24/20 Principal diagnosis: COVID-19 Interval history: Patient feels better, currently on 4 L nasal cannula. Not hypoxic events overnight. No fever. Objective - Constitutional Vitals: Vital Signs Temp Pulse Resp BP Pulse Ox 98.4 F 76 16 120/65 95 11/24/20 12:41 11/24/20 12:41 11/24/20 12:41 11/24/20 12:41 11/24/20 12:41 Temperature -Last 24 Hours Temperature 98.4 F Temperature 98.3 F Temperature 97.7 F - Labs CBC & Chem 7: 11/22/20 06:36 11/24/20 05:58 Labs: Abnormal lab results 11/24/20 Range/Units 05:58 Sodium 134 L (137-145) mmol/L Chloride 96.1 L (98-107) mmol/L Glucose 158 H (75-100) mg/dL AST 50 H (5-40) units/L ALT 160 H (7-56) units/L Albumin 3.6 L (3.9-5) g/dL
[2020-11-24 20:36] LABS: C-Reactive Protein 0.6 mg/dL (0.00-1.30)
[2020-11-24] MEDS: SODIUM CHLORIDE 0.9% 50 ML IVPB IV SCH (22:00)
[2020-11-24] MEDS: REMDESIVIR 100 MG in SODIUM CHLORIDE 0.9% 250ML 250 ML IV SCH (22:30)
[2020-11-25] MEDS: ASCORBIC ACID 500 MG TAB PO SCH ×2 (07:48→09:50)
[2020-11-25] MEDS: CHOLECALCIFEROL (VIT D3) 5,000 UNIT TAB PO SCH (09:50)
[2020-11-25] MEDS: ZINC SULFATE 220 MG CAP PO SCH (09:50)
[2020-11-25] MEDS: FAMOTIDINE 20 MG TAB PO SCH (09:50)
[2020-11-25] MEDS: DEXAMETHASONE 4 MG TAB PO SCH (09:50)
[2020-11-25 11:50] LABS: Alanine Aminotransferase 225 units/L (7-56); Albumin 3.6 g/dL (3.9-5)
[2020-11-25 11:55] LABS: Bilirubin,Direct < 0.2 mg/dL (0-0.2)
[2020-11-25 12:58] VITALS: BP 119/69
--- NOTE | 2020-11-25 14:12 | Discharge Summary ---
Providers - Providers Date of Admission: 11/19/20 13:53 Date of discharge: 11/25/20 Attending physician: GEOVANNY NORTON 11/19/20 23:05 Consult to Physician [CONS] Routine Comment: Consulting Provider: DARREN BERNARDO Physician Instructions: Reason For Exam: Bilateral pneumonia Primary care physician: [facility] [employer] Hospitalization Condition: Serious Hospital course: This is a 30-year-old man no past medical history presented to hospital with cough and shortness of breath for about a week prior to this admission. He refused Covid vaccine as an outpatient. Covid testing is positive as outpatient in urgent care. His O2 saturation was 87% on admission. Patient noted to have elevated inflammatory markers, normal procalcitonin normal renal function and slightly elevated liver enzyme. Patient was placed on COVID-19 protocol and admitted to the hospital for further evaluation and management. Imaging personally reviewed: Chest x-ray: Bilateral pneumonia Daily clinical course: 11/20/2020: Slightly labored breathing on encounter. O2 sat however was 99%, Per RN, patient had just gotten up to go to bathroom off of oxygen supplemntation. Patient had normalized breathing by the end of encounter. patient states that his chest hurts and he is still very short of breath. Patient was requiring 8L NC at the time of encounter. 11/21/2020: Patient was satting 99% this morning. He states he was still feeling ill however his breathing was not as labored as yesterday. States his appetite is adequate and he has been eating his meals. Encouraged p.o. hydration on my encounter. Patient will get first dose of remdesivir today. 11/22/2020: Patient resting comfortably. Saturating at 97% on bedside encounter. He is still requiring supplemental oxygen at NC 6 L. He still continues to feel chest tightness however his breathing is no longer labored and he feels as though he is improving. Patient will continue remdesivir course. We will double steroid dose due to patient body weight. 11/23/20: Continue dexamethasone and remdesivir. Continue to follow inflammatory markers. Patient remains on 3 to 4 L supplemental O2. Continue to follow clinically and wean off O2 as tolerated. 06/27/20: Patient now resting on room air, day 4 of remdesivir today. Continue dexamethasone. Inflammatory markers trending down. Possible discharge tomorrow if clinically remains stable after fifth dose of remdesivir. 06/28/20: Patient continued to be in room air without any difficulties. Inflammatory markers continue to trend down. Last dose of remdesivir today. Patient will be discharged home with the dexamethasone to complete 10 days course. Recommended Covid vaccine as outpatient when appropriate per CDC guideline. Disposition: DC-01 TO HOME OR SELFCARE Final Discharge Diagnosis (Prints w/discharge instructions): --Acute hypoxic res piratory failure. --Bilateral COVID-19 pneumonia. --Transaminitis due to COVID-19 infection. --SIRS due to COVID-19 pneumonia. --Hyponatremia, resolved. --MICHELE, due to breastmilk nephropathy, resolved. --Thrombocytopenia likely due to COVID-19 infection, resolved. --Hyperkalemia resolved Time spent for discharge: 34 minutes Core Measure Documentation - Palliative Care Palliative Care/ Comfort Measures: Not Applicable - Core Measures Any of the following diagnoses?: none Exam - Constitutional Vitals: Temp Pulse Resp BP Pulse Ox 97.8 F 85 18 119/69 94 11/25/20 11:14 11/25/20 11:14 11/25/20 11:14 11/25/20 11:14 11/25/20 11:14 Plan Follow up with: PRIMARY MD BHARGAVI [Primary Care Provider] - 7 Days OMAR DOMINGO MD [Staff Physician] - 7 Days Prescriptions: dexAMETHasone [Decadron] 8 mg PO DAILY #5 tablet Famotidine [Pepcid] 20 mg PO BID #14 tablet Ascorbic Acid [Vitamin C] 1,000 mg PO BID #14 tablet Zinc Sulfate 220 mg PO BID #14 capsule
[2020-11-25] MEDS ORDERED: SODIUM CHLORIDE 0.9% 50 ML IVPB IV ONE (15:00)
[2020-11-25] MEDS ORDERED: REMDESIVIR 100 MG in SODIUM CHLORIDE 0.9% 250ML 250 ML IV ONE (15:00)
--- NOTE | 2020-11-25 17:34 | Progress Note ---
Assessment and Plan Cultures: Blood culture no growth so far Covid PCR: Positive as outpatient, pending as inpatient. A/P: 28-year-old man with obesity presented to hospital with COVID-19 mono. #Severe COVID-19 pneumonia: Patient presented with a week of symptoms, chest x- ray with diffuse bilateral infiltrates, admission O2 sats 87%on room air. Inflammatory markers elevated. Markers downtrending. #Acute hypoxemic respiratory failure: Likely secondary to COVID-19 infection. Improving. Now on room air. #Obesity #Thrombocytopenia: Improving, likely secondary to #Elevated status: Likely secondary to COVID-19/due to remdesivir, worsening but not higher than 10X normal Recs: -Okay to discharge after last dose of remdesivir -Continue dexamethasone 8 mg daily for 10 days -Continue remdesivir D5 of 5 Lauryn Infante MD [facility] ([facility]) Office [phone] Subjective Date of service: 11/25/20 Principal diagnosis: COVID-19 Interval history: Patient feels great, currently on room air, no hypoxia. Objective - Exam Narrative Exam: General appearance: Alert in NAD Eyes: anicteric sclerae, moist conjunctivae; no lid-lag; PERRLA HENT: Normocephalic, Atraumatic; normal external ears, nares open, oropharynx clear with moist mucous membranes and no oral thrush Neck: supple, tracheal midline, no JVD Lungs: Clear to auscultation bilaterally CV: RRR no murmur Abdomen: Soft, non-tender; no masses or hepatosplenomegaly Extremities: no edema, no cyanosis Skin: No rash. Psych: no agitated Neuro: alert and oriented x 3. Moving all extermities - Constitutional Vitals: Vital Signs Temp Pulse Resp BP Pulse Ox 97.8 F 85 18 119/69 94 11/25/20 11:14 11/25/20 11:14 11/25/20 11:14 11/25/20 11:14 11/25/20 11:14 Temperature -Last 24 Hours Temperature 97.8 F Temperature 97.9 F - Labs CBC & Chem 7: 11/22/20 06:36 11/24/20 05:58 Labs: Abnormal lab results 11/24/20 11/24/20 11/25/20 Range/Units 19:53 19:53 11:10 Ferritin 751.1 H (30.0-300.0) ng/mL ALT 225 H (7-56) units/L Lactate Dehydrogenase 559 H (91-180) units/L Albumin 3.6 L (3.9-5) g/dL 11/25/20 Range/Units 11:10 Ferritin 676.7 H (30.0-300.0) ng/mL ALT (7-56) units/L Lactate Dehydrogenase (91-180) units/L Albumin (3.9-5) g/dL
[2020-11-26] MEDS ORDERED: DEXAMETHASONE 4 MG TAB PO SCH (10:00)
== END 2020-11-25 17:00 | disposition home or self-care (01) | DRG 177 ==
LOC: ED 11:19 → 3A 13:53
PROVIDERS: ADMIT Internal Medicine; ATTEND Internal Medicine
PROC: XW033E5 Introduction of Remdesivir Anti-infective into Peripheral Vein, Percutaneous Approach, New Technology Group 5 (ICD-10-PCS; principal; 2020-11-21)
DX: U07.1 COVID-19 (principal); J12.82 Pneumonia due to coronavirus disease 2019; J96.01 Acute respiratory failure with hypoxia; N17.0 Acute kidney failure with tubular necrosis; R65.10 Systemic inflammatory response syndrome (SIRS) of non-infectious origin without acute organ dysfunction; E87.1 Hypo-osmolality and hyponatremia; E66.9 Obesity, unspecified; D69.6 Thrombocytopenia, unspecified; R74.01 Elevation of levels of liver transaminase levels; E87.5 Hyperkalemia; Z68.29 Body mass index [BMI] 29.0-29.9, adult
CPT/HCPCS: 36415; 71046; 80053; 80074; 80076; 82728; 83036; 83615; 84145; 84484; 85007; 85025; 85379; 86140; 87040; 93005; 96361; 96365; 96375; G0378; J0456; J0696; J1100; J2765; J3010; J7050; J8540